=== PATIENT | female | born 1980 | race African-American/Black ===

== ENCOUNTER 2025-01-03 13:58 | Emergency (ER) | payer OTHER, SELFPAY ==
--- NOTE | ~2025-01-03 | XR_ITS ---
EXAMINATION: XR chest 1V portable, 01/03/2025 16:20 CDT HISTORY: uri, cough COMPARISON: No comparisons available. Technique: Single view. Findings: The lungs are clear, no effusion. No pneumothorax. Heart is normal size. Mediastinal and hilar contours are within normal limits. Bony thorax no acute abnormality. Impression: No acute cardiopulmonary abnormality. Reviewed, dictated and finalized at location A. Impression: No acute cardiopulmonary abnormality.
[2025-01-03 14:10] VITALS: BP 159/95; PULSE 83; RESP 21; O2SAT 94
--- NOTE | 2025-01-03 15:14 | ECG_ITS ---
Test Date: 2025-01-03 15:49:22 Measurements Intervals [place] Rate: 78 P: 59 PA: 145 QRS: 8 QRSD: 88 T: -5 QT: 365 QTc: 417 Interpretive Statements SINUS RHYTHM NORMAL ELECTROCARDIOGRAM No previous ECG available for comparison Electronically Signed On 01-05-2025 15:20:28 CDT by Lorenzo Valencia M.D.
[2025-01-03] MEDS: IPRATROPIUM BR 0.02% INH SOLN 0.5 MG/2.5 ML VIAL 1.5 MG INHALATION (15:37)
[2025-01-03 15:40] VITALS: PULSE 84; RESP 20
[2025-01-03 16:05] LABS: Hematocrit 39.4 % (37.0-47.0); Hemoglobin 12.2 g/dL (12.0-15.0); Immature Granulocyte Percent A 0.1 % (0-0.5); Lymphocytes Absolute Auto 2.06 K/mm3 (0.9-3.2); Mean Corpuscular HGB Conc 31.0 g/dl (32-36); Mean Corpuscular Hemoglobin 27.2 pg (26-34); Mean Corpuscular Volume 87.8 fl (80-100); Nucleated Red Blood Cells Absolute Auto 0.000 K/mm3 (0.0-0.012); Nucleated Red Blood Cells Perc 0.0 % (0.0-0.2); Platelet Count Result 240 k/mm3 (150-375); Red Blood Count 4.49 M/mm3 (4.2-5.4); White Blood Count 7.5 K/mm3 (4.5-10.0)
[2025-01-03 16:16] LABS: INR 1.1; Partial Thromboplastin Time 27.8 Seconds (22.3-36.8); Prothrombin Time 13.9 Seconds (11.1-14.7)
[2025-01-03 16:20] LABS: Alanine Aminotransferase 19 U/L (6-35); Albumin Level 3.9 g/dL (3.5-5.1); Alkaline Phosphatase 83 U/L (38-126); Anion Gap 6 mmol/L (4-12); Aspartate Amino Transferase 24 U/L (14-36); Bilirubin,Total 0.4 mg/dL (0.2-1.3); Blood Urea Nitrogen 11 mg/dL (7-17); Calcium 9.0 mg/dL (8.4-10.2); Carbon Dioxide 24 mmol/L (22-30); Chloride 104 mmol/L (98-107); Estimated Glomerular Filt Rate > 60; Glucose 90 mg/dL (65-110); Potassium 3.8 mmol/L (3.4-5.0); Sodium 134 mmol/L (137-145); Total Protein 7.0 g/dL (6.3-8.2)
[2025-01-03 16:28] LABS: Troponin I < 0.012 ng/mL (0.000-0.034)
--- NOTE | 2025-01-03 16:28 | ED_ITS ---
HPI - URI/Sore Throat General Chief Complaint: Upper Respiratory Infection Stated Complaint: Upper resp sx's, coughing, cold sx's, wheezing Time Seen by Provider: 01/03/25 14:51 Source: patient Mode of arrival: ambulatory Limitations: no limitations History of Present Illness HPI Narrative: Patient is a 44-year-old female, with PMH of asthma, who presents the ED with report of URI symptoms, cough, shortness of breath. Patient reports she developed URI symptoms yesterday, including cough, congestion, rhinorrhea. Reports symptoms have persisted into today and have began to flare of her asthma. Reports wheezing, shortness breath, chest tightness. Denies known fevers. Denies sick contacts. Related Data Allergies Allergy/AdvReac Type Severity Reaction Status Date / Time No Known Allergies Allergy Verified 01/03/25 16:04 Review of Systems 2 Review of Systems: All systems reviewed & are unremarkable except as noted in HPI. All systems reviewed & are unremarkable except as noted in HPI and below Exam 2 Narrative: GENERAL: Well appearing, well-nourished, non-toxic, in no acute distress. HEAD: Normocephalic, atraumatic. RESPIRATORY: Airway patent, respirations mildly tachypneic. Diffuse expiratory wheezing in all lung rojas. No significant focal rhonchi. Frequent coughing on exam. CARDIOVASCULAR: Regular rate and rhythm without murmurs, rubs, or gallops. ABDOMINAL: Soft, nontender, nondistended. Normoactive BS. MUSCULOSKELETAL: Moves all extremities. No gross deformities. SKIN: Warm, dry, normal color. NEURO: A&O X3. Speech clear. Cranial nerves II-XII grossly intact. Steady gait. No ataxic movements. PSYCHIATRIC: Appropriate mood and affect. Normal interaction. Course Vital Signs Vital signs: Vital Signs Pulse Rate 83 01/03/25 14:10 Respiratory Rate 21 H 01/03/25 14:10 Blood Pressure 159/95 H 01/03/25 14:10 Pulse Oximetry 94 01/03/25 14:10 Pulse Rate 87 01/03/25 19:26 Respiratory Rate 12 01/03/25 19:26 Blood Pressure 159/89 H 01/03/25 19:26 Pulse Oximetry 95 01/03/25 19:26 Oxygen Delivery Room Air 01/03/25 16:39 MDM - URI/Sore Throat MDM Narrative Medical decision making narrative: Patient presented to ED with cough, shortness breath, URI symptoms, history of asthma. Patient mildly [place] apneic with diffuse extreme wheezing on exam. She is afebrile here. Otherwise in no jimmie distress. Laboratory studies without leukocytosis or anemia. CMP is unremarkable. EKG without concerning changes. Troponin undetectable. D-dimer within normal range. Chest x-ray is clear. No evidence of pneumonia. Viral swabs are negative. 3 hour troponin undetectable Patient given Solu-Medrol and hour long nebulizer treatment in the ED. On re- evaluation, she is feeling improved, but still having some SOB, worse with exertion. Suspicious for upper respiratory infection causing asthma flare. Patient was ambulated throughout the ED and no hypoxia noted. She does feel comfortable going home to continue inhaler/nebulizers. Will discharge on steroid course. Advised close follow-up with PCP, very strict return precautions. Patient in agreement with plan. Discharged in stable condition. Medical Records Attestation: I reviewed the patient's medical records. Lab Data Attestation: I reviewed the patient's lab results. 01/03/25 15:40 01/03/25 15:40 Labs: Lab Results 01/03/25 01/03/25 Range/Units 15:40 18:44 WBC 7.5 (4.5-10.0) K/mm3 RBC 4.49 (4.2-5.4) M/mm3 Hgb 12.2 (12.0-15.0) g/dL Hct 39.4 (37.0-47.0) % MCV 87.8 (80-100) fl MCH 27.2 (26-34) pg MCHC 31.0 L (32-36) g/dl RDW 12.2 (11.5-14.5) % Plt Count 240 (150-375) k/mm3 MPV 9.6 (7.4-10.4) fl Immature Gran % (Auto) 0.1 (0-0.5) % Neut % (Auto) 58.3 (45.5-73.1) % Lymph % (Auto) 27.3 (18.3-44.2) % [place] % (Auto) 5.0 (2.6-8.5) % Eos % (Auto) 8.2 H (0-4.4) % Baso % (Auto) 1.1 (0.2-1.2) % Lymph # (Auto) 2.06 (0.9-3.2) K/mm3 [place] # (Auto) 0.4 (0.1-0.6) K/mm3 Eos # (Auto) 0.6 H (0-0.3) K/mm3 Baso # (Auto) 0.1 (0.0-0.1) K/mm3 Abs Immat Gran (auto) 0.01 (0.00-0.031) K/mm3 Absolute Neuts (auto) 4.4 (1.3-6.7) K/mm3 Absolute Nucleated RBC 0.000 (0.0-0.012) K/mm3 Nucleated RBC % 0.0 (0.0-0.2) % PT 13.9 (11.1-14.7) Seconds INR 1.1 APTT 27.8 (22.3-36.8) Seconds D-Dimer 0.35 (<0.48) ug/mL Sodium 134 L (137-145) mmol/L Potassium 3.8 (3.4-5.0) mmol/L Chloride 104 (98-107) mmol/L Carbon Dioxide 24 (22-30) mmol/L Anion Gap 6 (4-12) mmol/L BUN 11 (7-17) mg/dL Creatinine 0.81 (0.7-1.0) mg/dL Estim Creat Clear Calc Not Reportable Estimated GFR > 60 (59 - ) Glucose 90 (65-110) mg/dL Calcium 9.0 (8.4-10.2) mg/dL Total Bilirubin 0.4 (0.2-1.3) mg/dL AST 24 (14-36) U/L ALT 19 (6-35) U/L Alkaline Phosphatase 83 (38-126) U/L Troponin I < 0.012 < 0.012 (0.000-0.034) ng/mL Total Protein 7.0 (6.3-8.2) g/dL Albumin 3.9 (3.5-5.1) g/dL Influenza A (RT-PCR) Negative (Negative) Influenza B (RT-PCR) Negative (Negative) RSV (RT-PCR) Negative (Negative) SARS-CoV-2 RNA (RT-PCR) Negative (Negative) Imaging Data Attestation: I personally reviewed and interpreted this imaging study as follows: Radiologist's impression: ITS Impressions Chest X-Ray 01/03/25 16:31 Impression: No acute cardiopulmonary abnormality. ECG Data EKG #1: Attestation: I personally reviewed and interpreted this ECG as follows: ECG completion date: 01/03/25 ECG completion time: 15:49 EKG Interpretation: normal rate (78), sinus rhythm and non-specific ST changes Discharge Plan Discharge Clinical Impression: Upper respiratory infection, Asthma exacerbation Patient Disposition: Home Condition: Stable Instructions: Antibiotic Form, Asthma (ED), Upper Respiratory Infection (ED), Viral Syndrome (ED) Additional Instructions: Take steroids as prescribed. Continue your inhaler and nebulizers as needed and prescribed. Utilize Tessalon Perles as needed for cough. Tylenol and Ibuprofen for discomfort and/or fevers. Recommend kegm-vkl-pzwgtwd cough and cold medicines for symptom relief, Delsym, Mucinex, DayQuil, NyQuil, Sudafed, Robitussin, TheraFlu. Follow with primary care doctor for further evaluation. Return to the ED if you experience worsening or severe difficulty breathing, worsening chest pain, persistent fevers, unable to keep down food or drink, pain or swelling in your legs, or any other symptoms of concern. Patient Language: Hungarian Prescriptions: New benzonatate 200 mg capsule 200 mg PO TID PRN (Reason: cough) Qty: 15 0RF prednisone 50 mg tablet 50 mg PO DAILY Qty: 5 0RF Follow-up/Referrals: PHYSICIAN NOT ON STAFF,NONSTAFF [Non-Staff]
[2025-01-03 16:41] LABS: Influenza A QL RT-PCR Negative (Negative); Influenza B QL RT-PCR Negative (Negative); RSV RNA, RT-PCR Negative (Negative); SARS-CoV-2 RNA PCR Negative (Negative)
--- OUTSIDE RECORDS SUMMARY | 2025-01-03 16:45 | XMS_ITS | Clinical Summary ---
Author Organization [facility] Address [address] [place] [address] Phone Care Team Providers Care Lecturer In Computer Science Name Role Phone Unavailable Primary Care Provider Unavailabl e Allergies No known active allergies Medications montelukast (Singulair) 10 mg tablet Take 1 Tablet (10 mg) by mouth daily at bedtime. 30 Tablet 1 3 Active albuterol sulfate HFA 90 mcg/actuation aerosol inhaler Take 4 Puffs by inhalation every 4 hours as needed for Shortness of Breath. 8.5 Gram 3 Active albuterol (PROVENTIL,VENTOL IN) 2.5 mg /3 mL (0.083 %) Solution for Nebulization Take 3 mL (2.5 mg) by inhalation every 6 hours as needed for Shortness of Breath. 90 mL 11 11/02/2023 6:57 PM CDT 4 Active budesonide-formot [place] (Symbicort) 160-4.5 mcg/actuation HFA Aerosol Inhaler Take 2 Puffs by inhalation 2 times daily. 10.2 Gram 11 11/05/2023 4:18 PM CDT 4 Active glyBURIDE (DIABETA) 5 mg tablet TAKE 1 TABLET BY MOUTH TWICE DAILY DIRECTED Active fluticasone propionate (FLONASE) 50 mcg/spray [place], Suspension nasal inhaler SHAKE LIQUID AND USE 1 SPRAY IN EACH NOSTRIL EVERY DAY Active losartan-hydroCHL OROthiazide (HYZAAR) 100-12.5 mg tablet Take 1 Tablet by mouth daily in the morning. 2 Active Active Problems Problem Noted Date Diagnosed Date Moderate persistent asthma with exacerbation Type 2 diabetes mellitus wit h hypoglycemia without coma, without long-term current use of insulin 01/11/2022 Encounters Date Type Department Care Team Description 10/19/2024 External Device Data [facility]CTION Provider, Abstract 10/19/2024 External Device Data [facility] Provider, Abstract 10/19/2024 External Device Data [facility] Provider, Abstract 10/13/2024 External Device Data [facility] Provider, Abstract from Last 3 Months Immunizations Immunization Administration Dates Next Due Influenza Seasonal Unspecifi ed Formulation IM 02/25/2023,02/07/2022,01/24/2021 Social History Tobacco Use Types Packs/Day Years Used Date Smoking Tobacco: Never Smokeless Tobacco: Never Tobacco Cessation:Counseling Given: Not Answered Alcohol Use Standard Drinks/Week Comments Not Currently 0 (1 standard drink = 0.6 oz pur e alcohol) Feeling Safe Answer Date Recorded Are you in a relationship wi th someone who hurts you emotionally and/or physically? 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 Gender Identity Not on file Sexual Orientation Not on file Last Filed Vital Signs Vital Sign Reading Time Taken Comments Blood Pressure 132/101 11/02/2023 5:09 PM CDT Pulse 97 11/02/2023 5:32 PM CDT Temperature 36.8 C (98.3 F) 11/02/2023 5:09 PM CDT Respiratory Rate 18 11/02/2023 6:52 PM CDT Oxygen Saturation 93% 11/02/2023 5:32 PM CDT Inhaled Oxygen Concentration - - Weight 152 kg (335 lb) 11/02/2023 5:09 PM CDT Height 168.1 cm (5' 6.2) 11/02/2023 5:09 PM CDT Body Mass Index 53.74 11/02/2023 5:09 PM CDT Plan of Treatment Health Maintenance Due Date Last Done Comments DIABETES ANNUAL FOOT EXAM 1997 DIABETES ANNUAL RETINAL EXAM 1997 DIABETES MICROALBUMIN ANNUAL SCREEN 1997 LDL CHOLESTEROL ANNUAL 1997 HEPATITIS B VACCINES (1 of 3 - 19+ 3-dose series) 1998 02/10/2018 HPV/Cotest (21-29) 2000 HPV VACCINES (1 - 3-dose SCD M series) 2006 CERVICAL CANCER SCREENING 2009 HPV/Cotest (30-65) 2009 PAP SMEAR 2009 BREAST CANCER SCREENING 2019 COLORECTAL SCREENING 2024 Colorectal Cancer Screening 2024 FIT-DNA Q 3 years 2024 FIT/FOBT Q 1 year 2024 Flex Sig/CT Colonography Q 5 years 2024 DIABETES HBA1C Q 6 MONTHS 08/23/20242023, 01/10/2022, 10/26/2021, Additional history exists INFLUENZA VACCINE (#1) 2024 , 02/07/2022, 01/24/2021, Additional history exists DTAP/TDAP/TD VACCINES (2 - T d or Tdap) 02/11/2028 02/10/2018 Procedures Procedure Name Priority Date/Time Associated Diagnosis Comments HEMOGLOBIN A1C Stat 01/10/2022 8:54 PM CDT from Last 3 Months or Most Recently Relevant to Health Maintenance Results * HEMOGLOBIN A1C (01/10/2022 8:54 PM CDT) HEMOGLOBIN A1C 4.7 <5.7 % 01/10/2022 10:06 PM CDT [facility] [place] [facility] EST. AVG GLUCOSE, A1C 88 mg/dL 01/10/2022 10:06 PM CDT [facility] Blood Venipuncture / Unknown 01/10/2022 8:54 PM CDT 01/10/2022 9:49 PM CDT Narrative [facility] - 01/10/2022 10:06 PM CDT HGB A1C INTERPRETATION NORMAL: <5.7% PRE-DIABETES: 5.7 - 6.4% DIABETES: 6.5% OR GREATER us Kirit Martinez MD CHEMISTRY ORDERABLES Final Re sult [facility] [place] [facility] CLIA# [id number] [address] [place] [place] [id number] from Last 3 Months or Most Recently Relevant to Health Maintenance Insurance [employer] [place] [employer] [facility] [employer] Advance Directives For more information, please contact: [phone] * Default Full Code - Needs Discussion (Latest Code Status on File) Date Activated Date Inactivated Comments 01/11/2022 7:40 AM 01/11/2022 9:52 AM
--- OUTSIDE RECORDS SUMMARY | 2025-01-03 16:45 | XMS_ITS | Clinical Summary ---
Author Organization [facility] Address [address] [place] [id number] Care Team Providers Care English Language Arts Teacher Name Role Phone Abdias Dumont MD Primary Care Provider [phone] Social History Tobacco Use Types Packs/Day Years Used Date Smoking Tobacco: Never Assessed Comments Unknown Sex and Gender Information Value Date Recorded Sex Assigned at Not on file Legal Sex Female 8:14 PM CDT Gender Identity Not on file Sexual Orientation Not on file Plan of Treatment Health Maintenance Due Date Last Done Comments Cervical Cancer Screening Pa p Smear (Age 30 to 64) Every 3 Years 1979 Colorectal Cancer Screening Colonoscopy (10 Years) 1979 Annual Physical 1982 Hepatitis C 1997 DTaP, Tdap and Td Vaccines ( 1 - Tdap) 1998 Hepatitis B Vaccines (1 of 3 - 19+ 3-dose series) 1998 HPV Vaccines (1 - 3-dose SCD M series) 2006 Cervical Cancer Screening Pa p with HPV Testing (Age 30 to 64) Every 5 Years 2009 Cervical Cancer Screening with HPV 2009 Mammogram Screening 2019 COVID-19 Vaccine (2023-2 5 season) 2024 Meningococcal B Vaccine Aged Out No l onger eligible based on patient's age to complete this topic Meningococcal Vaccine Aged Out No kervin leoncio eligible based on patient's age to complete this topic Pneumococcal Vaccine: Pediat rics (0 to 5 Years) and At-Risk Patients (6 to 49 Years) Aged Out No longer eligible b ased on patient's age to complete this topic RSV Immunizations Under 20 Months Aged Out No longer eligible based on patient's age to complete this topic Care Teams English Language Arts Teacher Relationship Specialty Start Date End Date Abdias Dumont MD [address] [place] [phone] PCP - General 05/05/13
--- OUTSIDE RECORDS SUMMARY | 2025-01-03 16:45 | XMS_ITS | Clinical Summary ---
Author Organization [facility] Address [address] [place] [address] Care Team Providers Care Armorer Technician Name Role Phone Rosa Maria Mckee Gennaro PRIESTN-ASSEMBLING MACHINE OPERATOR Primary Care Provi maryana Source Comments [facility],non-owned Affiliates and Associated Physician Practices is amultiple site organization consisting of ambulatory clinics and hospital sitesin [place], [place], [place] and [place]. This disclosure is being madepursuant to the Care Everywhere program and may not contain all information available regarding this patient. Last updated 18.[facility] Allergies No known active allergies Medications * Be aware that medications may not be up to date on this document. Alwaysverify current medications with the patient. ipratropium (ATROVENT) 0.06 % nasal spray Tucker 2 sprays into each nostril 3 times daily 1 bottles 9 Active albuterol HFA (ProAir HFA) 108 (90 Base) MCG/ACT inhaler Inhale 2 (two) puffs by mouth every 4 hours as needed 8.5 g 3 Active Nirmatrelvir&Ri tonavir 300/100 20 x 150 MG & 10 x 100MG Oral Tablet Therapy Pack (Paxlovid) Take two 150mg tablets (300mg) of nirmatrelvir and one tablet (100mg) of ritonavir together as a single dose by mouth twice daily for 5 days. Do not crush, chew, or cut in half. 30 tablet 4 Active albuterol (Accuneb) 1.25 MG/3ML nebulizer solution Inhale 3 mL by mouth 4 times daily as needed for Shortness of Breath or Wheezing 75 mL Active Active Problems No known active problems Encounters Date Type Department Care Team Description 11/21/2024 9:38 AM CDT - 11/21/2024 1:21 PM CDT Emergency ER at [address] [address] SOB (shortness of breath); Moderate asthma with exacerbation, unspecified whether persistent (HCC); Hypertension, unspecified type Discharge Disposition: Home or Self Care 11/21/2024 Travel from Last 3 Months Social History Tobacco Use Types Packs/Day Years Used Date Smoking Tobacco: Every Day Cigarettes Smokeless Tobacco: Never Tobacco Cessation:Ready to Q uit: Not Asked; Counseling Given: Not Answered Alcohol Use Standard Drinks/Week Comments Never 0 (1 standard drink = 0.6 oz pur e alcohol) AUDIT-C Answer Date Recorded Q1: How often do you have a drink containing alcohol? Never 11/21/2024 Q2: How many drinks containi ng alcohol do you have on a typical day when you are drinking? Patient does not drink Q3: How often do you have si x or more drinks on one occasion? 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 Gender Identity Not on file Sexual Orientation Not on file Last Filed Vital Signs Vital Sign Reading Time Taken Comments Blood Pressure 176/98 11/21/2024 12:35 PM CDT Pulse 82 11/21/2024 12:35 PM CDT Temperature 36.8 C (98.2 F) 11/21/2024 9:26 AM CDT Respiratory Rate 18 11/21/2024 10:21 AM CDT Oxygen Saturation 95% 11/21/2024 12:35 PM CDT Inhaled Oxygen Concentration 21% 11/21/2024 1 0:21 AM CDT Weight 157.4 kg (347 lb) 11/21/2024 9:26 AM CDT Height 170.2 cm (5' 7) 11/21/2024 9:26 AM CDT Body Mass Index 54.35 11/21/2024 9:26 AM CDT Plan of Treatment Health Maintenance Due Date Last Done Comments JUHI (AGES 45-75) - COL ON CA SCREENING 1979 COLON MONITORING 1979 COLONOSCOPY - COLON CA SCREENING 1979 CT COLONOGRAPHY - COLON CA SCREENING 1979 Colorectal Cancer Screening 1979 FIT - COLON CA SCREENING 1979 FLEX SIG - COLON CA SCREENING 1979 MAMMOGRAM 1979 HIV SCREENING 1994 HEPATITIS C SCREENING 04/10/1997 DTAP/TDAP/TD VACCINES (1 - Tdap) 1998 HEPATITIS B VACCINE (1 of 3 - 19+ 3-dose series) 1998 PNEUMOCOCCAL VACCINE (1 of 2 - PCV) 1998 PAP SMEAR 2000 HPV VACCINE (1 - 3-dose SCDM series) 2006 DEPRESSION SCREENING 04/28/2024 COVID-19 VACCINE (3 - 2024-2 6 season) 2024 11/24/2020, 10/18/2020 INFLUENZA VACCINE (#1) 2024 , 01/24/2021, 02/10/2018 LIPID TESTING 04/10/2027 04/10/2022, 01/11/2022, 01/10/2022 ZOSTER VACCINE (1 of 2) 2029 HIB VACCINE Aged Out No longer eligi ble based on patient's age to complete this topic MENINGOCOCCAL (Group B) VACCINE SHARED DECISION-MAKING Aged Out No longer eligible based on patient's age to complete this topic MENINGOCOCCAL GROUPS A/C/Y/W VACCINE Aged Out No longer eligible b ased on patient's age to complete this topic Procedures Procedure Name Priority Date/Time Associated Diagnosis Comments CARDIAC EKG ORDER 11/22/2024 8:1 5 PM CDT TROPONIN-I HIGH SENSITIVE REFLEX 1HOUR Timed 11/21/2024 11:56 AM CDT B-TYPE NATRIURETIC PEPTIDE STAT 11/21/2024 11:19 AM CDT CBC W AUTO DIFFERENTIAL STAT 11/21/2024 11:19 AM CDT XR CHEST 2VW STAT 11/21/2024 10:19 AM CDT SOB (shortness of breath) HCG BETA BLOOD QUANTITATIVE STAT 11/21/2024 10:04 AM CDT TROPONIN-I HIGH SENSITIVE BASELINE + 1HR STAT 11/21/2024 10:04 AM CDT COMPREHENSIVE METABOLIC PANEL STAT 11/21/2024 10:04 AM CDT EKG 12-LEAD STAT 11/21/2024 9:42 AM CDT SOB (shortness of breath) from Last 3 Months Results * CARDIAC EKG ORDER (11/22/2024 8:15 PM CDT) Narrative 11/22/2024 8:15 PM CDT Ordered by an unspecified provider. us Scanned Document CARDIAC SERVICES ORDERABLES Fin al Result * TROPONIN-I HIGH SENSITIVE REFLEX 1HOUR (11/21/2024 11:56 AM CDT) Pathologist [facility] [place] Troponin I High Sensitive 5 <=14 ng/L 11/21/2024 12:25 PM CDT [facility] Delta Troponin I HS 11/21/2024 12:25 PM CDT [facility] Comment:Delta value intentio marissa not calculated. Baseline to 1 hour specimen collection interval exceeded. Blood BLOOD SPECIMEN / Unknown Venipuncture / Unknown 11/21/2024 11:56 AM CDT 11/21/2024 12:04 PM CDT us Hilda Lennon PA-C LAB - CHEMISTRY ORDERABLES Final Result [facility] [address] [place] [address] * CBC W AUTO DIFFERENTIAL (11/21/2024 11:19 AM CDT) WBC 7.9 4.0 - 10.7 x10E9/L 11/21/2024 11:21 AM CDT [facility] RBC Count 4.50 3.90 - 5.20 x10E12/L 11/21/2024 11:21 AM CDT [facility] Hemoglobin 12.5 11.9 - 15.8 g/dL 11/21/2024 11:21 AM CDT [facility] Hematocrit 38.5 34.8 - 46.1 % 11/21/2024 11:21 AM CDT [facility] MCV 85.6 80.0 - 98.0 fL 11/21/2024 11:21 AM CDT [facility] MCH 27.8 26.7 - 33.6 pg 11/21/2024 11:21 AM CDT [facility] MCHC 32.5 31.7 - 36.3 g/dL 11/21/2024 11:21 AM CDT [facility] RDW-CV 12.7 11.3 - 14.8 % 11/21/2024 11:21 AM CDT [facility] Platelet Count 243 150 - 420 x10E9/L 11/21/2024 11:21 AM CDT [facility] MPV 9.8 7.8 - 11.4 fL 11/21/2024 11:21 AM CDT [facility] Neutrophil % 51.5 41.0 - 74.0 % 11/21/2024 11:21 AM CDT [facility] Lymphocyte % 36.4 17.0 - 47.0 % 11/21/2024 11:21 AM CDT [facility] Monocyte % 4.7 3.0 - 11.0 % 11/21/2024 11:21 AM CDT [facility] Eosinophil % 6.2 0.0 - 7.0 % 11/21/2024 11:21 AM CDT [facility] Basophil % 0.9 0.0 - 1.6 % 11/21/2024 11:21 AM CDT [facility] Immature Granulocytes % 0.3 0.0 - 1.0 % 11/21/2024 11:21 AM CDT [facility] Neutrophil Absolute 4.06 1.60 - 7.50 x10E9/L 11/21/2024 11:21 AM CDT [facility] Lymphocyte Absolute 2.87 1.00 - 4.40 x10E9/L 11/21/2024 11:21 AM CDT [facility] Monocyte Absolute 0.37 0.15 - 1.00 x10E9/L 11/21/2024 11:21 AM CDT [facility] Eosinophil Absolute 0.49 0.00 - 0.60 x10E9/L 11/21/2024 11:21 AM CDT [facility] Basophil Absolute 0.07 0.00 - 0.13 x10E9/L 11/21/2024 11:21 AM CDT [facility] Blood BLOOD SPECIMEN / Unknown Venipuncture / Unknown 11/21/2024 11:19 AM CDT 11/21/2024 11:19 AM CDT Hilda Lennon PA-C LAB - HEMATOLOGY ORDERABLE S Final Result Performing Organization Address [facility] Co de Phone Number [facility] [address] [place] [id number] * B-TYPE NATRIURETIC PEPTIDE (11/21/2024 11:19 AM CDT) BNP 44 <=100 pg/mL 11/21/2024 11:41 AM CDT [facility] Blood BLOOD SPECIMEN / Unknown Venipuncture / Unknown 11/21/2024 11:19 AM CDT 11/21/2024 11:19 AM CDT Narrative [facility] - 11/21/2024 11:41 AM CDT A cutoff of 100 pg/mL has been demonstrated to provide the maximal combination of sensitivity, specificity, and negative predictive value for contributing to the diagnosis of congestive heart failure (CHF) only. A B-Type Natriuretic Peptide (BNP) value greater than or equal to 100 pg/mL is consistent with a diagnosis of CHF in the appropriate clinical setting. False positive results are more common in females greater than 75 years of age. Blood concentrations of natriuretic peptides may also be elevated in patients with myocardial infarction and in patients who are candidates for or are undergoing renal dialysis. us Hilda Lennon PA-C LAB - CHEMISTRY ORDERABLES Final Result Performing Organization Address [facility]/ZIP Co de Phone Number [facility] [address] [place] [id number] * XR CHEST 2VW (11/21/2024 10:19 AM CDT) Anatomical Region Laterality Modality Chest Radiographic Keysha ging 11/21/2024 10:2 9 AM CDT Impressions 11/21/2024 10:30 AM CDT IMPRESSION: Bibasilar atelectasis. > Interpreting Provider: Lorenzo Nix MD on 11/21/2024 10:30 AM Narrative 11/21/2024 10:30 AM CDT PROCEDURE: XR CHEST 2VW DATE/TIME OF EXAM: 11/21/2024 10:20 AM CLINICAL INFORMATION: None relevant/not provided if blank. Indication: R06.02: SOB (shortness of breath) Additional History: COMPARISON: 01/17/2024 FINDINGS: Linear bilateral mid to lower lung subsegmental atelectasis. No confluent consolidation, effusion, or pneumothorax. The cardiomediastinal silhouette is within normal limits for technique.No acute osseous abnormality is identified. Procedure Note Lorenzo Nix MD - 11/21/2024 PROCEDURE: XR CHEST 2VW DATE/TIME OF EXAM: 11/21/2024 10:20 AM CLINICAL INFORMATION: None relevant/not provided if blank. Indication: R06.02: SOB (shortness of breath) Additional History: COMPARISON: 01/17/2024 FINDINGS: Linear bilateral mid to lower lung subsegmental atelectasis. Noconfluent consolidation, effusion, or pneumothorax. The cardiomediastinalsilhouette is within normal limits for technique.No acute osseous abnormality is identified. IMPRESSION: Bibasilar atelectasis. > Interpreting Provider: Lorenzo Nix MD on 11/21/2024 10:30 AM Hilda Lennon PA-C DIAGNOSTIC IMAGING ORDERAB LES Final Result * TROPONIN-I HIGH SENSITIVE BASELINE + 1HR (11/21/2024 10:04 AM CDT) Troponin I High Sensitive 5 <=14 ng/L 11/21/2024 10:43 AM CDT [facility] Blood BLOOD SPECIMEN / Unknown Venipuncture / Unknown 11/21/2024 10:04 AM CDT 11/21/2024 10:21 AM CDT us Hilda Lennon PA-C LAB - CHEMISTRY ORDERABLES Final Result [facility] [address] [place] [address] * (ABNORMAL) COMPREHENSIVE METABOLIC PANEL (11/21/2024 10:04 AM CDT) [facility] Glucose 93 70 - 99 mg/dL 11/21/2024 10:39 AM CDT [facility] Sodium 137 136 - 145 mmol/L 11/21/2024 10:39 AM CDT [facility] Potassium 4.9 3.5 - 5.1 mmol/L 11/21/2024 10:39 AM CDT [facility] Chloride 110(H) 98 - 107 mmol/L 11/21/2024 10:39 AM CDT [facility] CO2 19(L) 22 - 29 mmol/L 11/21/2024 10:39 AM CDT [facility] Calcium 8.7 8.4 - 10.4 mg/dL 11/21/2024 10:39 AM CDT [facility] Anion Gap 8 6 - 16 mmol/L 11/21/2024 10:39 AM CDT [facility] BUN 11 5.3 - 18.7 mg/dL 11/21/2024 10:39 AM CDT [facility] Creatinine 0.89 0.57 - 1.11 mg/dL 11/21/2024 10:39 AM CDT [facility] Alkaline Phosphatase 64 40 - 150 U/L 11/21/2024 10:39 AM CDT [facility] ALT 20 6 - 57 U/L 11/21/2024 10:39 AM CDT [facility] AST 49(H) 10 - 48 U/L 11/21/2024 10:39 AM CDT [facility] Protein Total 7.3 6.4 - 8.3 gm/dL 11/21/2024 10:39 AM CDT [facility] Albumin 3.7 3.1 - 4.5 gm/dL 11/21/2024 10:39 AM CDT [facility] Bilirubin Total 0.5 0.2 - 1.2 mg/dL 11/21/2024 10:39 AM CDT [facility] eGFR by CKD-EPI 81(L) >=90 mL/min/1.7 3 m2 11/21/2024 10:39 AM CDT [facility] Comment:Estimated Glomerular Filtration Rate (eGFR) calculated using the CKD-EPI Creatinine Equation (2020), per the National Kidney Foundation and [place] [employer] Neph[employer] recommendations. Blood BLOOD SPECIMEN / Unknown Venipuncture / Unknown 11/21/2024 10:04 AM CDT 11/21/2024 10:21 AM CDT Narrative [facility] - 11/21/2024 10:39 AM CDT Specimen moderately hemolyzed, K, AST and total protein may be falsely elevated Hilda Lennon PA-C LAB - CHEMISTRY ORDERABLES Final Result [facility] [address] [place] [address] * HCG BETA BLOOD QUANTITATIVE (11/21/2024 10:04 AM CDT) [facility] hCG Quantitative <2.42 mIU/mL 11/22/19 10:45 AM CDT [facility] Blood BLOOD SPECIMEN / Unknown Venipuncture / Unknown 11/21/2024 10:04 AM CDT 11/21/2024 10:21 AM CDT Narrative [facility] - 11/21/2024 10:45 AM CDT hCG Reference Range, mIU/mL: Non Females 0-6.0 Perimenopausal Females ages 41-55* 0-7.7 Postmenopausal Females age >55* 0-14 Females, Weeks after Last Menstrual Period 0.2-1 week 5-50 1 - 2 weeks 50-500 2 - 3 weeks 100-5000 3 - 4 weeks 500-10,000 4 - 5 weeks 1000-50,000 5 - 6 weeks 10,000-100,000 6 - 8 weeks 15,000-200,000 2 - 3 months 10,000-100,000 Trophoblastic Disease >100,000 *In higher than expected hCG in females > age 40, a serum FSH >20 IU/L makes unlikely. us Hilda Lennon PA-C LAB - CHEMISTRY ORDERABLES Final Result [facility] [address] [place] [address] * EKG 12-LEAD (11/21/2024 9:42 AM CDT) Ventricular Rate 72 BPM [facility] Atrial Rate 72 BPM [facility] P-R Interval 148 ms [facility] QRS Duration ms 80 ms [facility] Q-T Interval ms 390 ms [facility] QTC Calculation (Bezet) 427 ms [facility] Calculated P Niles 58 degrees [facility] Calculated R Niles 22 degrees [facility] Calculated T Niles 17 degrees [facility] Interpretation EKG NORMAL SINUS RHYTHM NORMAL ECG Confirmed by MD Yolie, Kyaw ([id number]) on 11/21/2024 2:28:00 PM [facility] 11/21/2024 9:42 AM CDT 11/21/2024 2:28 PM CDT us Hilda Lennon PA-C ECG ORDERABLES Edited Res ult - Final Performing Organization Address City/[facility]/ZIP Co de Phone Number [facility] from Last 3 Months Insurance [employer] Care Teams Armorer Technician Relationship Specialty Start Date End Date Rosa Maria Mckee, DYE TANK TENDER-ASSEMBLING MACHINE OPERATOR [address] [place] [address] [address] [place] [address] PCP - General Nurse Practitioner Family 02/23/24
[2025-01-03 16:47] VITALS: PULSE 86; RESP 20
--- NOTE | 2025-01-03 18:31 | ECG_ITS ---
Test Date: 2025-01-03 18:38:32 Measurements Intervals [place] Rate: 93 P: 55 [place]: 149 QRS: -13 QRSD: 91 T: 16 QT: 351 QTc: 437 Interpretive Statements SINUS RHYTHM NORMAL ELECTROCARDIOGRAM Compared to ECG 01/03/2025 15:49:22 No significant changes Electronically Signed On 01-05-2025 15:24:00 CDT by Lorenzo Valencia M.D.
[2025-01-03 19:11] LABS: Troponin I < 0.012 ng/mL (0.000-0.034)
[2025-01-03 19:26] VITALS: BP 159/89; PULSE 87; RESP 12; O2SAT 95
== END 2025-01-03 19:26 | disposition home or self-care (01) ==
PROVIDERS: Student in an Organized Health Care Education/Training Program; Emergency Provider Physician Assistant
DX: J06.9 Acute upper respiratory infection, unspecified (principal); J45.901 Unspecified asthma with (acute) exacerbation; Z20.822 Contact with and (suspected) exposure to COVID-19
CPT/HCPCS: 36415; 71045; 80053; 84484; 85025; 85380; 85610; 85730; 87637; 93005; 94640; 96374; 99284; J2919

== ENCOUNTER 2025-02-13 12:41 | Emergency (ER) | payer OTHER, SELFPAY ==
--- NOTE | ~2025-02-13 | XR_ITS ---
Examination: XR chest 2V Clinical History: shortness of breath HX ASTHMA Comparison: 01/03/2025 Technique: PA and Lateral Findings: Cardiomediastinal silhouette normal size and configuration. Small airspace disease right middle lobe. Right basilar linear atelectasis. No acute bony abnormality. IMPRESSION: 1. Small airspace disease right middle lobe. Reviewed, dictated and finalized at location R.
[2025-02-13 12:57] VITALS: PULSE 76; RESP 18; TEMP 36.6; O2SAT 98
[2025-02-13 13:00] VITALS: O2SAT 100
--- NOTE | 2025-02-13 13:18 | ED_ITS ---
HPI - Asthma General Chief Complaint: Asthma Stated Complaint: asthma Time Seen by Provider: 02/13/25 13:11 Source: patient Mode of arrival: ambulatory Limitations: no limitations History of Present Illness HPI Narrative: This is a 44-year-old female with history of asthma who presents to the ED for shortness of breath. Patient states for the past 4-5 days, she has worsening shortness of breath consistent with her asthma. She has been using her albuterol inhaler and nebulizer treatments more frequently. She states that she used it 3 times this morning. She was concerned that this was getting worse admitted to get ahead of her asthma attacks. She has not been admitted recently for any reason. 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 Related Data Allergies Allergy/AdvReac Type Severity Reaction Status Date / Time No Known Allergies Allergy Verified 01/03/25 16:04 Review of Systems Review of Systems: Gen.: Denies fevers or chills Eyes: Denies eye pain or visual change ENT: Denies congestion Respiratory: Denies shortness of breath or cough CV: Denies chest pain or palpitations GI: Denies abdominal pain nausea, emesis or diarrhea denies burning, urgency, frequency or hematuria Musculoskeletal: Denies back pain or muscle pain Neuro: Denies numbness, tingling, weakness or focal weakness Skin: Denies rash Except as documented, all other systems reviewed and negative Exam Narrative: APPEARANCE: No acute distress, nontoxic, resting in bed EYES: EOMI HEENT: Normocephalic, atraumatic, OMM RESPIRATORY: No respiratory distress diminished breath sounds throughout with faint end-expiratory wheezes throughout CARDIOVASCULAR: Regular rate and rhythm without murmurs rubs or gallops. ABDOMINAL: Soft, nontender, nondistended, no rebound or guarding MUSCULOSKELETAl: Moves all extremities. No clubbing, cyanosis or edema. NEURO: Awake and alert. Following commands, speech normal, no focal deficits SKIN:: Warm, dry. No rashes lesions or abrasions PSYCHIATRIC: Normal affect/mood, Course Vital Signs Vital signs: Vital Signs Temperature 97.8 F 02/13/25 12:57 Pulse Rate 76 02/13/25 12:57 Respiratory Rate 18 02/13/25 12:57 Pulse Oximetry 98 02/13/25 12:57 Oxygen Delivery Room Air 02/13/25 12:57 Temperature 97.8 F 02/13/25 12:57 Pulse Rate 79 02/13/25 13:29 Respiratory Rate 18 02/13/25 13:29 Pulse Oximetry 97 02/13/25 13:29 Oxygen Delivery Room Air 02/13/25 13:00 MDM - Asthma MDM Narrative Medical decision making narrative: 44-year-old female presenting for shortness breath and flu-like symptoms. On initial evaluation patient was in no acute distress, afebrile, hemodynamically stable. She did have some diminished breath sounds throughout with end- expiratory wheezes. Patient was given a DuoNeb and steroids. Chest x-ray was obtained which did show a right middle lobe pneumonia. COVID/flu/RSV negative Prehn patient started short course of steroids and will be given Augmentin and doxycycline for pneumonia. Patient was also advised to continue taking albuterol treatments as needed. She was advised follow-up with her PCP in the next week for re-evaluation. Patient was agreeable to this plan. Given strict return precautions. Differential Diagnosis Differential diagnosis: Likely Acute exacerbation, Acute asthmatic bronchitis and Pneumonia Medical Records Attestation: I reviewed the patient's medical records. Lab Data Attestation: I reviewed the patient's lab results. Labs: Lab Results 02/13/25 Range/Units 13:32 Influenza A (RT-PCR) Negative (Negative) Influenza B (RT-PCR) Negative (Negative) RSV (RT-PCR) Negative (Negative) SARS-CoV-2 RNA (RT-PCR) Negative (Negative) Imaging Data Attestation: I personally reviewed and interpreted this imaging study as follows: My impression: Chest x-ray: Small infiltrate to the right lower lung, normal cardiac silhouette, no effusions Radiologist's impression: Impressions Chest X-Ray 02/13/25 13:53 IMPRESSION: 1. Small airspace disease right middle lobe. Discharge Plan Discharge Clinical Impression: Pneumonia Qualifiers: Pneumonia type: due to unspecified organism Laterality: right Lung location: middle lobe of lung Qualified Code(s): J18.9 - Pneumonia, unspecified organism Asthma with acute exacerbation Qualifiers: Asthma severity: mild Asthma persistence: intermittent Qualified Code(s): J45.21 - Mild intermittent asthma with (acute) exacerbation Patient Disposition: Home Condition: Stable Instructions: Antibiotic Form, Asthma (ED), Community Acquired Pneumonia (ED) Additional Instructions: X-ray did reveal pneumonia. Your given prescriptions for Augmentin and doxycycline and a prednisone, take these as prescribed. Follow-up with the PCP in the next week for re-evaluation. Return to the ED for any new or worsening symptoms. Patient Language: German Prescriptions: New prednisone 50 mg tablet 50 mg PO DAILY Qty: 4 0RF Rx Instructions: begin taking 02/14/25 doxycycline hyclate 100 mg capsule 100 mg PO DAILY Qty: 14 0RF amoxicillin-pot clavulanate 875-125 mg tablet 1 tablet PO Q12H Qty: 14 0RF No Action benzonatate 200 mg capsule 200 mg PO TID PRN (Reason: cough) Qty: 15 0RF prednisone 50 mg tablet 50 mg PO DAILY Qty: 5 0RF Follow-up/Referrals: Willy Loyola MD [Physician, Family Practice] UNKNOWN,DOCTOR [Primary Care Provider] Stand Alone Forms: Work/School Release IP
[2025-02-13 13:20] VITALS: PULSE 75; RESP 20
[2025-02-13] MEDS: IPRATROPIUM 0.5 MG/ALBUTEROL SULFATE 2.5 MG (BASE) AMPUL.NEB 3 ML INHALATION (13:22)
[2025-02-13 13:26] VITALS: PULSE 78; RESP 20
[2025-02-13 13:29] VITALS: PULSE 79; RESP 18; O2SAT 97
--- OUTSIDE RECORDS SUMMARY | 2025-02-13 13:47 | XMS_ITS | Clinical Summary ---
Author Organization [facility] Address [address] [place] [address] Phone Care Team Providers Care Mortgage Loan Originator Name Role Phone Unavailable Primary Care Provider [...] DIRECTED Active fluticasone propionate (FLONASE) 50 mcg/spray [place], Suspension nasal inhaler SHAKE LIQUID AND USE 1 SPRAY IN EACH NOSTRIL EVERY DAY Active losartan-hydroCHL OROthiazide (HYZAAR) 100-12.5 mg tablet Take 1 Tablet by mouth daily in the morning. 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 AVG GLUCOSE, A1C 88 mg/dL 01/10/2022 10:06 PM CDT [facility] Blood Venipuncture / Unknown 01/10/2022 8:54 PM CDT 01/10/2022 9:49 PM CDT Narrative [facility] - 01/10/2022 10:06 PM CDT HGB A1C INTERPRETATION NORMAL: <5.7% PRE-DIABETES: 5.7 - 6.4% DIABETES: 6.5% OR GREATER us Kirit Martinez MD CHEMISTRY ORDERABLES Final Re sult [facility] [employer] [facility] CLIA# [id number] [address] [place] [id number] from Last 3 Months or Most Recently Relevant to Health Maintenance Insurance [place] [employer] [facility] [employer] Advance Directives For more information, please contact: [phone] * Default Full Code - Needs Discussion (Latest Code Status on File) Date Activated Date Inactivated Comments 01/11/2022 7:40 AM 01/11/2022 9:52 AM
--- OUTSIDE RECORDS SUMMARY | 2025-02-13 13:47 | XMS_ITS | Clinical Summary ---
Author Organization [facility] Address [address] [place] [address] Care Team Providers Care Athletic Events Scorer Name Role Phone Abdias Dumont MD Primary Care Provider [phone] Social History Tobacco Use Types Packs/Day Years [...] 2019 COVID-19 Vaccine (2023-2 5 season) 2024 Influenza Adult (#1) 2025 Hepatitis A Vaccines Aged Out No long er eligible based on patient's age to complete this topic Meningococcal B Vaccine Aged Out No l [...] age to complete this topic Care Teams Athletic Events Scorer Relationship Specialty Start Date End Date Abdias Dumont MD [address] [place] [id number] PCP - General 05/05/13
--- OUTSIDE RECORDS SUMMARY | 2025-02-13 13:47 | XMS_ITS | Clinical Summary ---
Author Organization [facility] Address [address] [place] [address] Care Team Providers Care Child Care Center Administrator Name Role Phone Rosa Maria Mckee Gennaro PRIESTN-SUPERVISOR [employer] Primary Care Provi maryana Source Comments [facility],non-owned Affiliates and Associated Physician Practices is amultiple site organization consisting of ambulatory clinics and hospital sitesin [place], [place], [place] and [place]. This disclosure is being madepursuant to the Care Everywhere program and may not contain all information available regarding this patient. Last updated 18.[facility] Allergies No known active allergies Medications * Be aware that medications may not be up to date on this document. Alwaysverify current medications with the patient. 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 Baseline to 1 hour specimen collection interval exceeded. Blood BLOOD SPECIMEN / Unknown Venipuncture / Unknown 11/21/2024 11:56 AM CDT 11/21/2024 12:04 PM CDT us Hilda Lennon PA-C LAB - CHEMISTRY ORDERABLES Final Result [facility] [address] [place] [address] * CBC W AUTO DIFFERENTIAL (11/21/2024 11:19 AM CDT) WBC 7.9 4.0 - 10.7 x10E9/L 11/21/2024 11:21 AM CDT [facility] RBC Count 4.50 3.90 - 5.20 x10E12/L 11/21/2024 11:21 AM CDT [facility] Hemoglobin 12.5 11.9 - 15.8 g/dL 11/21/2024 11:21 AM CDT [facility] Hematocrit 38.5 34.8 - 46.1 % 11/21/2024 11:21 AM CDT [facility] MCV 85.6 80.0 - 98.0 fL 11/21/2024 11:21 AM CDT [facility] MCH 27.8 26.7 - 33.6 pg 11/21/2024 11:21 AM CDT [facility] MCHC 32.5 31.7 - 36.3 g/dL 11/21/2024 11:21 AM CDT [facility] RDW-CV 12.7 11.3 - 14.8 % 11/21/2024 11:21 AM CDT [facility] Platelet Count 243 150 - 420 x10E9/L 11/21/2024 11:21 AM CDT [facility] MPV 9.8 7.8 - 11.4 fL 11/21/2024 11:21 AM CDT [facility] Neutrophil % 51.5 41.0 - 74.0 % 11/21/2024 11:21 AM CDT [facility] Lymphocyte % 36.4 17.0 - 47.0 % 11/21/2024 11:21 AM CDT [facility] Monocyte % 4.7 3.0 - 11.0 % 11/21/2024 11:21 AM CDT [facility] Eosinophil % 6.2 0.0 - 7.0 % 11/21/2024 11:21 AM CDT [facility] Basophil % 0.9 0.0 - 1.6 % 11/21/2024 11:21 AM CDT [facility] Immature Granulocytes % 0.3 0.0 - 1.0 % 11/21/2024 11:21 AM CDT [facility] Neutrophil Absolute 4.06 1.60 - 7.50 x10E9/L 11/21/2024 11:21 AM CDT [facility] Lymphocyte Absolute 2.87 1.00 - 4.40 x10E9/L 11/21/2024 11:21 AM CDT [facility] Monocyte Absolute 0.37 0.15 - 1.00 x10E9/L 11/21/2024 11:21 AM CDT [facility] Eosinophil Absolute 0.49 0.00 - 0.60 x10E9/L 11/21/2024 11:21 AM CDT [facility] Basophil Absolute 0.07 0.00 - 0.13 x10E9/L 11/21/2024 11:21 AM CDT [facility] Blood BLOOD SPECIMEN / Unknown Venipuncture / Unknown 11/21/2024 11:19 AM CDT 11/21/2024 11:19 AM CDT Hilda Lennon PA-C LAB - HEMATOLOGY ORDERABLE S Final Result Performing Organization Address [facility] Co de Phone Number [facility] [address] [place] [id number] * B-TYPE NATRIURETIC PEPTIDE (11/21/2024 11:19 AM CDT) BNP 44 <=100 pg/mL 11/21/2024 11:41 AM CDT [facility] Blood BLOOD SPECIMEN / Unknown Venipuncture / Unknown 11/21/2024 11:19 AM CDT 11/21/2024 11:19 AM CDT Narrative [facility] - 11/21/2024 11:41 AM CDT A [...] CHEMISTRY ORDERABLES Final Result Performing Organization Address [facility]/ZIP Co de Phone Number [facility] [address] [place] [address] * XR CHEST 2VW (11/21/2024 10:19 [...] 5 <=14 ng/L 11/21/2024 10:43 AM CDT [facility] Blood BLOOD SPECIMEN / Unknown Venipuncture / Unknown 11/21/2024 10:04 AM CDT 11/21/2024 10:21 AM CDT us Hilda Lennon PA-C LAB - CHEMISTRY ORDERABLES Final Result [facility] [address] [place] [address] * (ABNORMAL) COMPREHENSIVE METABOLIC PANEL (11/21/2024 10:04 AM CDT) [facility] Glucose 93 70 - 99 mg/dL 11/21/2024 10:39 AM CDT [facility] Sodium 137 136 - 145 mmol/L 11/21/2024 10:39 AM CDT [facility] Potassium 4.9 3.5 - 5.1 mmol/L 11/21/2024 10:39 AM CDT [facility] Chloride 110(H) 98 - 107 mmol/L 11/21/2024 10:39 AM CDT [facility] CO2 19(L) 22 - 29 mmol/L 11/21/2024 10:39 AM CDT [facility] Calcium 8.7 8.4 - 10.4 mg/dL 11/21/2024 10:39 AM CDT [facility] Anion Gap 8 6 - 16 mmol/L 11/21/2024 10:39 AM CDT [facility] BUN 11 5.3 - 18.7 mg/dL 11/21/2024 10:39 AM CDT [facility] Creatinine 0.89 0.57 - 1.11 mg/dL 11/21/2024 10:39 AM CDT [facility] Alkaline Phosphatase 64 40 - 150 U/L 11/21/2024 10:39 AM CDT [facility] ALT 20 6 - 57 U/L 11/21/2024 10:39 AM CDT [facility] AST 49(H) 10 - 48 U/L 11/21/2024 10:39 AM CDT [facility] Protein Total 7.3 6.4 - 8.3 gm/dL 11/21/2024 10:39 AM CDT [facility] Albumin 3.7 3.1 - 4.5 gm/dL 11/21/2024 10:39 AM CDT [facility] Bilirubin Total 0.5 0.2 - 1.2 mg/dL 11/21/2024 10:39 AM CDT [facility] eGFR by CKD-EPI 81(L) >=90 mL/min/1.7 3 m2 11/21/2024 10:39 AM CDT [facility] Comment:Estimated Glomerular Filtration Rate (eGFR) calculated using the CKD-EPI Creatinine Equation (2020), per the National Kidney Foundation and [place] Society of Nephrology recommendations. Blood BLOOD SPECIMEN / Unknown Venipuncture / Unknown 11/21/2024 10:04 AM CDT 11/21/2024 10:21 AM CDT Narrative [facility] - 11/21/2024 10:39 AM CDT Specimen moderately hemolyzed, K, AST and total protein may be falsely elevated Hilda Lennon PA-C LAB - CHEMISTRY ORDERABLES Final Result [facility] [address] [place] [address] * HCG BETA BLOOD QUANTITATIVE (11/21/2024 10:04 AM CDT) [facility] hCG Quantitative <2.42 mIU/mL 11/22/19 10:45 AM CDT [facility] Blood BLOOD SPECIMEN / Unknown Venipuncture / Unknown 11/21/2024 10:04 AM CDT 11/21/2024 10:21 AM CDT Narrative [facility] - 11/21/2024 10:45 AM CDT hCG [...] CHEMISTRY ORDERABLES Final Result [facility] [address] [place] [address] * EKG 12-LEAD (11/21/2024 9:42 AM CDT) Ventricular Rate 72 BPM [facility] Atrial Rate 72 BPM [facility] P-R Interval 148 ms [facility] QRS Duration ms 80 ms [facility] Q-T Interval ms 390 ms [facility] QTC Calculation (Bezet) 427 ms [facility] Calculated P [place] 58 degrees [facility] Calculated R [place] 22 degrees [facility] Calculated T [place] 17 degrees [facility] Interpretation EKG NORMAL SINUS RHYTHM NORMAL ECG Confirmed by MD Yolie, Kyaw ([id number]) on 11/21/2024 2:28:00 PM [facility] 11/21/2024 9:42 AM CDT 11/21/2024 2:28 PM CDT us Hilda Lennon PA-C ECG ORDERABLES Edited Res ult - Final Performing Organization Address City/[facility]/ZIP Co de Phone Number [facility] from Last 3 Months Insurance A[employer] Care Teams Child Care Center Administrator Relationship Specialty Start Date End Date Rosa Maria Mckee, CARDIOLOGY TECH-SUPERVISOR [employer] [address] [place] [address] [address] [place] [address] PCP - General Nurse Practitioner Family 02/23/24
[2025-02-13 14:15] LABS: Influenza A QL RT-PCR Negative (Negative); Influenza B QL RT-PCR Negative (Negative); RSV RNA, RT-PCR Negative (Negative); SARS-CoV-2 RNA PCR Negative (Negative)
== END 2025-02-13 14:13 | disposition home or self-care (01) ==
PROVIDERS: Emergency Provider Student in an Organized Health Care Education/Training Program
DX: J18.9 Pneumonia, unspecified organism (principal); J45.21 Mild intermittent asthma with (acute) exacerbation
CPT/HCPCS: 71046; 87637; 94640; 99283; J7512

== ENCOUNTER 2025-02-23 07:39 | Emergency (ER) | payer SELFPAY ==
--- NOTE | ~2025-02-23 | XR_ITS ---
EXAMINATION: XR chest 2V, 02/23/2025 9:10 CDT HISTORY: SOB, HX OF ASTHMA COMPARISON: No comparisons available. Technique: 2 views obtained. Findings: The lungs are clear, no effusion. No pneumothorax. Heart is normal size. Mediastinal and hilar contours are within normal limits. Bony thorax no acute abnormality. Impression: No acute cardiopulmonary abnormality. Reviewed, dictated and finalized at location P. Impression: No acute cardiopulmonary abnormality.
[2025-02-23 07:38] VITALS: BP 163/91; PULSE 82; RESP 20; TEMP 36.4; O2SAT 98
[2025-02-23 07:42] VITALS: O2SAT 99
--- NOTE | 2025-02-23 07:44 | ECG_ITS ---
Test Date: 2025-02-23 07:44:09 Measurements Intervals [place] Rate: 81 P: 46 NM: 116 QRS: 22 QRSD: 90 T: 29 QT: 380 QTc: 441 Interpretive Statements SINUS RHYTHM WITH SHORT NM INTERVAL BASELINE WANDER- II, III, AVR, AVL, AVF, V4-V6 BORDERLINE ECG Compared to ECG 01/03/2025 18:38:32 Short NM interval now present Electronically Signed On 02-23-2025 08:00:12 CDT by Froy Sandoval D.O.
[2025-02-23] MEDS: ALBUTEROL SULFATE NEB 2.5 MG/3 ML INH 10 MG INHALATION (08:04)
[2025-02-23 08:05] VITALS: PULSE 80; RESP 17
[2025-02-23] MEDS: IPRATROPIUM BR 0.02% INH SOLN 0.5 MG/2.5 ML VIAL 1 MG INHALATION (08:05)
[2025-02-23 08:14] LABS: Hematocrit 39.1 % (37.0-47.0); Hemoglobin 12.2 g/dL (12.0-15.0); Immature Granulocyte Percent A 0.8 % (0-0.5); Lymphocytes Absolute Auto 3.39 K/mm3 (0.9-3.2); Mean Corpuscular HGB Conc 31.2 g/dl (32-36); Mean Corpuscular Hemoglobin 26.8 pg (26-34); Mean Corpuscular Volume 85.9 fl (80-100); Nucleated Red Blood Cells Absolute Auto 0.000 K/mm3 (0.0-0.012); Nucleated Red Blood Cells Perc 0.0 % (0.0-0.2); Platelet Count Result 236 k/mm3 (150-375); Red Blood Count 4.55 M/mm3 (4.2-5.4); White Blood Count 8.5 K/mm3 (4.5-10.0)
[2025-02-23 08:32] LABS: Alanine Aminotransferase 21 U/L (6-35); Albumin Level 3.7 g/dL (3.5-5.1); Alkaline Phosphatase 72 U/L (38-126); Anion Gap 3 mmol/L (4-12); Aspartate Amino Transferase 21 U/L (14-36); Bilirubin,Total 0.6 mg/dL (0.2-1.3); Blood Urea Nitrogen 13 mg/dL (7-17); Calcium 8.5 mg/dL (8.4-10.2); Carbon Dioxide 31 mmol/L (22-30); Chloride 102 mmol/L (98-107); Estimated CRCL calculation 107 ml/min; Estimated Glomerular Filt Rate > 60; Glucose 98 mg/dL (65-110); Sodium 136 mmol/L (137-145); Total Protein 6.5 g/dL (6.3-8.2)
[2025-02-23 08:45] LABS: Potassium 3.8 mmol/L (3.4-5.0)
[2025-02-23 09:01] VITALS: PULSE 68; RESP 12
--- OUTSIDE RECORDS SUMMARY | 2025-02-23 09:26 | XMS_ITS | Clinical Summary ---
Author Organization [facility] Address [address] [place] [address] Phone Care Team Providers Care Competitive Shopper Name Role Phone Unavailable Primary Care Provider [...] DIRECTED Active fluticasone propionate (FLONASE) 50 mcg/spray [place], Suspension nasal inhaler SHAKE LIQUID AND USE [...] on file Legal Sex Female 1:02 PM FAMILY SUPPORT COORDINATOR Gender Identity Not on file Sexual Orientation [...] 4.7 <5.7 % 01/10/2022 10:06 PM CDT [facility] EST. AVG GLUCOSE, A1C 88 mg/dL 01/10/2022 10:06 PM CDT [facility] Blood Venipuncture / Unknown 01/10/2022 8:54 PM CDT 01/10/2022 9:49 PM CDT Narrative [facility] - 01/10/2022 10:06 PM CDT HGB A1C INTERPRETATION NORMAL: <5.7% PRE-DIABETES: 5.7 - 6.4% DIABETES: 6.5% OR GREATER us Kirit Martinez MD CHEMISTRY ORDERABLES Final Re sult [facility] [employer] [facility] CLIA# [id number] [address] [place] [id number] from Last 3 Months or Most Recently Relevant to Health Maintenance Insurance [place] [employer] [place] [facility] [employer] Advance Directives For more information, please contact: [phone] * Default Full Code - Needs Discussion (Latest Code Status on File) Date Activated Date Inactivated Comments 01/11/2022 7:40 AM 01/11/2022 9:52 AM
--- OUTSIDE RECORDS SUMMARY | 2025-02-23 09:26 | XMS_ITS | Clinical Summary ---
Author Organization [facility] Address [address] [place] [address] Care Team Providers Care Stereotype Molder Name Role Phone Rosa Maria Mckee Gennaro PRIESTN-SILVICULTURE PROFESSOR Primary Care Provi maryana Source Comments [employer] [employer] [facility],non-owned Affiliates and Associated Physician Practices is amultiple site organization consisting of ambulatory clinics and hospital sitesin [place], [place], [place] and [place]. This disclosure is being madepursuant to the Care Everywhere program and may not contain all information available regarding this patient. Last updated 18.[facility] Allergies No known active allergies Medications * Be aware that medications may not be up to date on this document. Alwaysverify current medications with the patient. 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 Gender Identity Not on file Sexual Orientation [...] Health Maintenance Due Date Last Done Comments COLOGUARD (AGES 45-75) - COL ON CA SCREENING 1979 COLON MONITORING 1979 COLONOSCOPY - COLON CA SCREENING 1979 CT COLONOGRAPHY - COLON CA SCREENING 1979 Colorectal Cancer Screening 1979 FIT - COLON CA SCREENING 1979 FLEX SIG - COLON CA SCREENING 1979 LIPID TESTING 1979 MAMMOGRAM 1979 HIV SCREENING 1994 HEPATITIS C SCREENING 04/10/1997 DTAP/TDAP/TD VACCINES (1 - Tdap) 1998 HEPATITIS B VACCINE (1 of 3 - 19+ 3-dose series) 1998 PNEUMOCOCCAL VACCINE (1 of 2 - PCV) 1998 PAP SMEAR 2000 HPV VACCINE (1 - 3-dose SCDM series) 2006 DEPRESSION SCREENING 04/28/2024 COVID-19 VACCINE (3 - 2024-2 6 season) 2024 11/24/2020, 10/18/2020 INFLUENZA VACCINE (#1) 2024 2, 01/24/2021, 02/10/2018 ZOSTER VACCINE (1 of 2) 2029 HIB VACCINE Aged Out No longer eligi ble based on patient's age to complete this topic MENINGOCOCCAL (Group B) VACCINE SHARED DECISION-MAKING Aged Out No longer eligible based on patient's age to complete this topic MENINGOCOCCAL GROUPS A/C/Y/W VACCINE Aged Out No longer eligible b ased on patient's age to complete this topic Insurance AETNA Care Teams Stereotype Molder Relationship Specialty Start Date End Date Rosa Maria Mckee, ECHO TECH-SILVICULTURE PROFESSOR [address] [address] PCP - General Nurse Practitioner Family 02/23/24
--- NOTE | 2025-02-23 09:52 | ED.SOB ---
HPI - SOB/Dyspnea General Chief Complaint: Shortness of Breath/Dyspnea Stated Complaint: sob Time Seen by Provider: 02/23/25 07:45 Source: patient Mode of arrival: EMS Limitations: no limitations History of Present Illness HPI Narrative: 44-year-old with a history of asthma presents to the ER with ambulance with a complains of shortness of breath for past 1 week. Patient states that she has been using a years more frequently. She has occasional cough which is nonproductive. No history of fever or chills. MD elicited complaint: asthma attack Pertinent past history: asthma Onset (ago): week(s) (1) Timing: intermittent Exacerbating factors: nothing Relieving factors: bronchodilators Known history of: asthma Associated symptoms: denies other symptoms Related Data Allergies Allergy/AdvReac Type Severity Reaction Status Date / Time No Known Allergies Allergy Verified 02/23/25 08:37 Review of Systems Review of Systems: All systems reviewed & are unremarkable except as noted in HPI and below Constitutional: Constitutional: Reports no additional constitutional complaints Eyes: Eyes: Reports no additional eye complaints ENT: Reports system reviewed and no additional complaints, except as documented Cardiovascular: Cardiovascular: Reports no additional cardiovascular complaints Respiratory: Respiratory: Reports as per HPI Gastrointestinal: Gastrointestinal: Reports no additional gastrointestinal complaints Musculoskeletal: Musculoskeletal: Reports no additional musculoskeletal complaints Exam Narrative: GENERAL: Well-appearing, morbidly obese, and in no acute distress. HEAD: Normocephalic, atraumatic. EYES: PERRLA and EOMI. ENT: Nares clear, no rhinorrhea or epistaxis. Mucous membranes moist. NECK: Supple. CHEST: Bilateral wheeze. No respiratory distress. HEART: Regular rate and rhythm. No murmur heard. Normal peripheral pulses. ABDOMEN: Soft, nontender, nondistended, normal active bowel sounds. EXTREMITIES: Normal range of motion. No edema. SKIN: Warm, dry, no rash. NEURO: No focal deficits. Alert and oriented x3. PSYCH: Normal mood and affect. Course Course Emergency Course: Patient was given 1 hour long neb treatment, his labs and chest x-ray were obtained which were unremarkable. I re-examined the lungs are lungs sound clear. Advised to take steroids as prescribed continue inhalers. Vital Signs Vital signs: Vital Signs Temperature 36.4 C 02/23/25 07:38 Pulse Rate 82 02/23/25 07:38 Respiratory Rate 20 02/23/25 07:38 Blood Pressure 163/91 H 02/23/25 07:38 Pulse Oximetry 98 02/23/25 07:38 Oxygen Delivery Room Air 02/23/25 07:38 Temperature 36.4 C 02/23/25 07:38 Pulse Rate 68 02/23/25 09:01 Respiratory Rate 12 02/23/25 09:01 Blood Pressure 163/91 H 02/23/25 07:38 Pulse Oximetry 99 02/23/25 07:42 Oxygen Delivery Room Air 02/23/25 07:42 MDM - SOB/Dyspnea Differential Diagnosis Differential diagnosis: Likely asthma with exacerbation Medical Records Attestation: I reviewed the patient's medical records. Lab Data Attestation: I reviewed the patient's lab results. 02/23/25 08:00 02/23/25 08:00 Labs: Lab Results 02/23/25 Range/Units 08:00 WBC 8.5 (4.5-10.0) K/mm3 RBC 4.55 (4.2-5.4) M/mm3 Hgb 12.2 (12.0-15.0) g/dL Hct 39.1 (37.0-47.0) % MCV 85.9 (80-100) fl MCH 26.8 (26-34) pg MCHC 31.2 L (32-36) g/dl RDW 12.8 (11.5-14.5) % Plt Count 236 (150-375) k/mm3 MPV 9.9 (7.4-10.4) fl Immature Gran % (Auto) 0.8 H (0-0.5) % Neut % (Auto) 47.4 (45.5-73.1) % Lymph % (Auto) 39.7 (18.3-44.2) % [place] % (Auto) 4.8 (2.6-8.5) % Eos % (Auto) 6.4 H (0-4.4) % Baso % (Auto) 0.9 (0.2-1.2) % Lymph # (Auto) 3.39 H (0.9-3.2) K/mm3 [place] # (Auto) 0.4 (0.1-0.6) K/mm3 Eos # (Auto) 0.6 H (0-0.3) K/mm3 Baso # (Auto) 0.1 (0.0-0.1) K/mm3 Abs Immat Gran (auto) 0.07 H (0.00-0.031) K/mm3 Absolute Neuts (auto) 4.0 (1.3-6.7) K/mm3 Absolute Nucleated RBC 0.000 (0.0-0.012) K/mm3 Nucleated RBC % 0.0 (0.0-0.2) % Sodium 136 L (137-145) mmol/L Potassium 3.8 (3.4-5.0) mmol/L Chloride 102 (98-107) mmol/L Carbon Dioxide 31 H (22-30) mmol/L Anion Gap 3 L (4-12) mmol/L BUN 13 (7-17) mg/dL Creatinine 0.91 (0.7-1.0) mg/dL Estim Creat Clear Calc 107 ml/min Estimated GFR > 60 (59 - ) Glucose 98 (65-110) mg/dL Calcium 8.5 (8.4-10.2) mg/dL Total Bilirubin 0.6 (0.2-1.3) mg/dL AST 21 (14-36) U/L ALT 21 (6-35) U/L Alkaline Phosphatase 72 (38-126) U/L Total Protein 6.5 (6.3-8.2) g/dL Albumin 3.7 (3.5-5.1) g/dL Imaging Data Radiologist's impression: ITS Impressions Chest X-Ray 02/23/25 09:24 Impression: No acute cardiopulmonary abnormality. ECG Data EKG #1: ECG completion date: 02/23/25 ECG completion time: 07:44 EKG Interpretation: normal rate (81), sinus rhythm, no ectopy, normal QRS and normal QT Discharge Plan Discharge Clinical Impression: Asthma attack Qualifiers: Asthma severity: moderate Asthma persistence: persistent Qualified Code(s): J45.41 - Moderate persistent asthma with (acute) exacerbation Patient Disposition: Home Condition: Stable Instructions: Asthma (ED) Additional Instructions: continue nebulizer or inhalers , take steroids as prescribed Patient Language: Faroese Prescriptions: New prednisone 20 mg tablet 20 mg PO BID Qty: 14 0RF No Action benzonatate 200 mg capsule 200 mg PO TID PRN (Reason: cough) Qty: 15 0RF prednisone 50 mg tablet 50 mg PO DAILY Qty: 5 0RF prednisone 50 mg tablet 50 mg PO DAILY Qty: 4 0RF Rx Instructions: begin taking 02/14/25 doxycycline hyclate 100 mg capsule 100 mg PO DAILY Qty: 14 0RF amoxicillin-pot clavulanate 875-125 mg tablet 1 tablet PO Q12H Qty: 14 0RF Follow-up/Referrals: Willy Loyola MD [Physician, Family Practice] UNKNOWN,DOCTOR [Primary Care Provider] Time of Disposition: 09:53
== END 2025-02-23 10:11 | disposition home or self-care (01) ==
PROVIDERS: Emergency Provider Family Medicine
DX: J45.41 Moderate persistent asthma with (acute) exacerbation (principal)
CPT/HCPCS: 36415; 71046; 80053; 85025; 93005; 94640; 96374; 99284; J2919

== ENCOUNTER 2025-04-02 09:37 | Emergency (ER) | payer OTHER, SELFPAY ==
--- NOTE | ~2025-04-02 | XR_ITS ---
Examination: XR chest 1V portable Clinical History: SOB, CP Comparison: 02/23/2025 Technique: Portable AP Findings: Heart size normal. Lungs clear. No acute bony abnormality. IMPRESSION: 1. No acute cardiopulmonary findings given portable technique. Reviewed, dictated and finalized at location R. [facility]OPPER
--- OUTSIDE RECORDS SUMMARY | 2025-04-02 09:39 | XMS_ITS | Clinical Summary ---
Author Organization [facility] Address [address] [place] [address] Care Team Providers Care Collections Attorney Name Role Phone Abdias Dumont MD Primary Care Provider [phone] Social History Tobacco Use Types Packs/Day Years [...] HPV 2009 Mammogram Screening 2019 COVID-19 Vaccine (2024-2 6 season) 2024 Influenza Adult (#1) 2025 Hepatitis [...] age to complete this topic Care Teams Collections Attorney Relationship Specialty Start Date End Date Abdias Dumont MD [address] [place] [id number] PCP - General 05/05/13
--- OUTSIDE RECORDS SUMMARY | 2025-04-02 09:39 | XMS_ITS | Data Portability ---
Author Organization [facility] Janay Huertas Address [address] [facility] [place] [address] Care Team Providers Care Manager Advertising Name Role Phone PAYAM BAUTISTA Primary Care Provider [phone] OPAL MCKEE Primary Care Provider Assessment Encounter Date Assessment Date Assessment LastModified by Organization Details LastModified Time 08/11/2024 08/11/2024 New patient exam performed. Diabetic foot exam performed. Diabetic education provided. Discussed routine use of atraumatic callus shaved with such as pumice stone to the bilateral hallux callus Return to clinic 1 year or sooner with acute issues Not available 08/11/2024 15:17:30 Plan of Treatment Reminders Order Date Submit Date Provider Last Modified By Organization Details Last Modified Time Details Appointments None recorded. Lab CMP, serum or plasma 2024 025 [facility], [address] [place] [address], [address], [place], [address], 19:15:14 HbA1c (hemoglobin A1c), blood 2024 025 njeffries 9 In-Office Order, Internal Use Only DO Not Attach Compendium DO Not Attach Compendium, Do Not Delete/merge, [id number] 10:30:05 glucose, fingerstick , blood 2024 025 njeffries 9 In-Office Order, Internal Use Only DO Not Attach Compendium DO Not Attach Compendium, Do Not Delete/merge, 10:30:05 potassium, serum or plasma 2024 [facility], [address], [address], [place], [address], 09:06:56 HbA1c (hemoglobin A1c), blood 2024 025 njeffries 9 In-Office Order, Internal Use Only DO Not Attach Compendium DO Not Attach Compendium, Do Not Delete/merge, 17:46:47 glucose, fingerstick , blood 2024 025 njeffries 9 In-Office Order, Internal Use Only DO Not Attach Compendium DO Not Attach Compendium, Do Not Delete/merge, 17:46:47 HbA1c (hemoglobin A1c), blood 2024 025 njeffries 9 In-Office Order, Internal Use Only DO Not Attach Compendium DO Not Attach Compendium, Do Not Delete/merge, 17:46:47 HbA1c (hemoglobin A1c), blood 2024 025 njeffries 9 In-Office Order, Internal Use Only DO Not Attach Compendium DO Not Attach Compendium, Do Not Delete/merge, 13:52:18 glucose, fingerstick , blood 2024 025 njeffries 9 In-Office Order, Internal Use Only DO Not Attach Compendium DO Not Attach Compendium, Do Not Delete/merge, 13:52:18 Referral None recorded. Procedures None recorded. Surgeries None recorded. Imaging None recorded. Medication Orders Ozempic 1 mg/dose (4 mg/3 mL) subcutaneou s pen injector 2024 [id number], [address] [place] [address], [id number], 04/23/202 5 10:30:10 atenolol 50 mg-chlortha lidone 25 mg tablet 2024 025 [facility] #[id number], [address] [place] [address], [id number], 5 10:31:35 losartan 25 mg tablet 2024 025 [facility] #[id number], [address] [place] [address], [id number], 5 10:31:35 atenolol 50 mg-chlortha lidone 25 mg tablet 2024 [facility] #56110, [address] [place] [address], [id number], 5 11:04:04 losartan 100 mg tablet 2024 025 [facility] #78193, [address] [place] [address], [id number], 10:31:19 losartan 100 mg-hydrochl orothiazide 12.5 mg tablet 2024 025 [facility] #[id number], [address] [place] [address], [id number], 5 11:05:07 Ozempic 0.25 mg or 0.5 mg (2 mg/1.5 mL) subcutaneou s pen injector 2024 [facility][id number], [address] [place] [address], [id number], 00:44:17 Patient TargetsNo targets recorded. Patient Instructions Encounter Date Encounter Id Patient Instructions Last Modified By Organization Details Last Modified Time 07/20/2024 [id number] A healthy lifestyle: care instructions Not available 07/21/2024 17:46:47 08/11/2024 [id number] type 2 diabetes education Not available 08/11/2024 15:18:03 diabetes medicin e education Not available 08/11/2024 15:18:03 diabetes and nutrition education Not available 08/11/2024 15:18:03 diabetes - A1C education information Not available 08/11/2024 15:18:03 diabetes, blood sugar level education Not available 08/11/2024 15:18:03 08/11/2024 [id number] presbyopia: care instructions msafi Not available 08/11/2024 14:33:54 08/18/2024 [id number] Quitting Tobacco : Care Instructions Not available 08/18/2024 11:59:58 A healthy lifestyle: care instructions Not available 08/18/2024 11:59:58 Reason for Referral None Reported. Results Created Date Observation Date Name Description Value Unit Range Abnormal Flag Note LastModifiedBy Organization Detail LastModifiedTime 06/22/1906/22/2024 HbA1c (hemo globi n A1c), blood HbA1c 5.3 Not Available In-Office Order Internal Use Only DO Not Attach Compendium DO Not Attach Compendium, Do Not Delete/merge, [id number] 06/22/2024 14:35:53 06/22/1906/22/2024 gluco se, finge rstic k, blood Blood Glucose: mg/dl 112 Not Available In-Off ice Order Internal Use Only DO Not Attach Compendium DO Not Attach Compendium, Do Not Delete/merge, [id number] 06/22/2024 14:36:06 06/25/1906/25/2024 COMPL ETE BLOOD COUNT AUTO DIFF white blood count 8.9 x10e3 /uL 3.4-10 .8 normal Not Available [facility] (Lab) [address] [place], [address], 06/25/2024 15:21:21 06/25/19 25 06/25/2024 COMPL ETE BLOOD COUNT AUTO DIFF red blood count 4.40 x10e6 /uL 3.77-5 .28 normal Not Available [facility] (Lab) [address], [place], [address], 06/25/2024 15:21:21 06/25/19 25 06/25/2024 COMPL ETE BLOOD COUNT AUTO DIFF hemoglobin 11.9 g/dL 11.1-1 5.9 normal Not Available [facility] (Lab) [address], [place], [address], 06/25/2024 15:21:21 06/25/19 25 06/25/2024 COMPL ETE BLOOD COUNT AUTO DIFF hematocrit 38.3 % 34.0-4 6.6 normal Not Available [facility] (Lab) [address], [place], [address], 06/25/2024 15:21:21 06/25/19 25 06/25/2024 COMPL ETE BLOOD COUNT AUTO DIFF mean corpuscular volume 87 fL 79-97 normal Not Available [facility] (Lab) [address], [place], [address], 06/25/2024 15:21:21 06/25/19 25 06/25/2024 COMPL ETE BLOOD COUNT AUTO DIFF mean corpuscular hemoglobin 27.0 pg 26.6-3 3.0 normal Not Available [facility] (Lab) [address], [place], [address], 06/25/2024 15:21:21 06/25/19 25 06/25/2024 COMPL ETE BLOOD COUNT AUTO DIFF mean corpuscular HGB conc 31.1 g/dL 31.5-3 5.7 low Not Available [facility] (Lab) [address] [place], [address], 06/25/2024 15:21:21 06/25/19 25 06/25/2024 COMPL ETE BLOOD COUNT AUTO DIFF red cell distribution width 12.2 % 11.5-1 4.5 normal Not Available [facility] (Lab) [address], [place], [address], 06/25/2024 15:21:21 06/25/19 25 06/25/2024 COMPL ETE BLOOD COUNT AUTO DIFF platelet count 258 x10e3 /uL 150-45 0 normal Not Available [facility] (Lab) [address], [place], [address], 06/25/2024 15:21:21 06/25/19 25 06/25/2024 COMPL ETE BLOOD COUNT AUTO DIFF mean platelet volume 10.1 fL 8.9-12 .7 normal Not Available [facility] (Lab) [address] [facility], [place], [address], 06/25/2024 15:21:21 06/25/19 25 06/25/2024 COMPL ETE BLOOD COUNT AUTO DIFF immature granulocytes pct auto 0.5 % not estb. Not Available [facility] (Lab) [address] [place], [address], 06/25/2024 15:21:21 06/25/19 25 06/25/2024 COMPL ETE BLOOD COUNT AUTO DIFF neutrophils percent auto 57 % not estb. Not Available [facility] (Lab) [address] [facility], [place], [address], 06/25/2024 15:21:21 06/25/19 25 06/25/2024 COMPL ETE BLOOD COUNT AUTO DIFF lymphocytes percent auto 34 % not estb. Not Available [facility] (Lab) [address] [facility], [place], [address], 06/25/2024 15:21:21 06/25/19 25 06/25/2024 COMPL ETE BLOOD COUNT AUTO DIFF monocytes percent auto 5 % not estb. Not Available [facility] (Lab) [address] [facility], [place], [address], 06/25/2024 15:21:21 06/25/19 25 06/25/2024 COMPL ETE BLOOD COUNT AUTO DIFF eosinophils percent auto 4 % not estb. Not Available [facility] (Lab) [address] [place], [address], 06/25/2024 15:21:21 06/25/19 25 06/25/2024 COMPL ETE BLOOD COUNT AUTO DIFF basophils percent auto 1 % not estb. Not Available [facility] (Lab) [address], [place], [address], 06/25/2024 15:21:21 06/25/19 25 06/25/2024 COMPL ETE BLOOD COUNT AUTO DIFF neutrophils absolute auto 5.1 x10e3 /uL 1.4-7. 0 normal Not Available [facility] (Lab) [address], [place], [address], 06/25/2024 15:21:21 06/25/19 25 06/25/2024 COMPL ETE BLOOD COUNT AUTO DIFF immature granulocytes abs auto 0.0 x10e3 /uL 0.0-0. 1 normal Not Available [facility] (Lab) [address], [place], [address], 06/25/2024 15:21:21 06/25/19 25 06/25/2024 COMPL ETE BLOOD COUNT AUTO DIFF lymphocytes absolute auto 3.0 x10e3 /uL 0.7-3. 1 normal Not Available [facility] (Lab) [address], [place], [address], 06/25/2024 15:21:21 06/25/19 25 06/25/2024 COMPL ETE BLOOD COUNT AUTO DIFF monocytes absolute auto 0.4 x10e3 /uL 0.1-0. 9 normal Not Available [facility] (Lab) [address] [place], [address], 06/25/2024 15:21:21 06/25/19 25 06/25/2024 COMPL ETE BLOOD COUNT AUTO DIFF eosinophils absolute auto 0.3 x10e3 /uL 0.0-0. 4 normal Not Available [facility] (Lab) [address] [place], [address], 06/25/2024 15:21:21 06/25/19 25 06/25/2024 COMPL ETE BLOOD COUNT AUTO DIFF basophils absolute auto 0.1 x10e3 /uL 0.0-0. 2 normal Not Available [facility] (Lab) [address] [place], [address], 06/25/2024 15:21:21 06/25/19 25 06/25/2024 COMPL ETE BLOOD COUNT AUTO DIFF nucleated red blood cells auto 0 % 0-0 normal Not Available [facility] (Lab) [address] [facility], [place], [address], 06/25/2024 15:21:21 07/07/19 25 07/06/2024 gluco se, clarisae rstic k, blood Blood Glucose: mg/dl 109 Not Available In-Off ice Order Internal Use Only DO Not Attach Compendium DO Not Attach Compendium, Do Not Delete/merge, 07/06/2024 11:44:35 07/07/1907/06/2024 HbA1c (hemo globi n A1c), blood HbA1c 5.3 Not Available In-Office Order Internal Use Only DO Not Attach Compendium DO Not Attach Compendium, Do Not Delete/merge, 07/06/2024 11:44:25 07/21/19 25 07/20/2024 HbA1c (hemo globi n A1c), blood HbA1c 5.5 Not Available In-Office Order Internal Use Only DO Not Attach Compendium DO Not Attach Compendium, Do Not Delete/merge, 07/20/2024 10:31:44 07/21/1907/20/2024 gluco se finge rstic k, blood Blood Glucose: mg/dl 95 Not Available In-Off ice Order Internal Use Only DO Not Attach Compendium DO Not Attach Compendium, Do Not Delete/merge, 07/20/2024 10:26:51 07/21/19 25 07/20/2024 HbA1c (hemo globi n A1c), blood HbA1c 5.5 Not Available In-Office Order Internal Use Only DO Not Attach Compendium DO Not Attach Compendium, Do Not Delete/merge, 07/20/2024 10:26:38 08/19/19 25 08/18/2024 COMP. METAB OLIC PANEL (14) glucose 120 mg/dL 70-99 above high normal Not Available [facility] [address] [place], [address], 08/18/2024 19:15:14 08/19/19 25 08/18/2024 COMP. METAB OLIC PANEL (14) BUN 17 mg/dL 6-24 Not Available [facility] [address] [place], [address], 08/18/2024 19:15:14 08/19/19 25 08/18/2024 COMP. METAB OLIC PANEL (14) creatinine 1.04 mg/dL 0.76-1 .27 Not Available [facility] [address] [place], [address], 08/18/2024 19:15:14 08/19/19 25 08/18/2024 COMP. METAB OLIC PANEL (14) eGFR 68 >=60 Units for eGFR value s are mL/mi n/1.7 3 The eGFR Calcu latio n has not been valid ated for patie nts under the age of 18. If test resul ts are displ ayed for a patie nt under the age of 18, disre rocio that value . Not Available [facility] [address] [place] [address], [address], 08/18/2024 19:15:14 08/19/19 25 08/18/2024 COMP. METAB OLIC PANEL (14) BUN/creatini ne ratio 16 9-23 Not Available [facility] [address] [place], [address], 08/18/2024 19:15:14 08/19/19 25 08/18/2024 COMP. METAB OLIC PANEL (14) sodium 135 mmol/ L 134-14 4 Not Available [facility] [address] [place], [address], 08/18/2024 19:15:14 08/19/19 25 08/18/2024 COMP. METAB OLIC PANEL (14) potassium 4.4 mmol/ L 3.5-5. 2 Not Available [facility] [address] [place], [address], 08/18/2024 19:15:14 08/19/19 25 08/18/2024 COMP. METAB OLIC PANEL (14) chloride 99 mmol/ L 96-106 Not Available [facility] [address] [place] [address], [address], 08/18/2024 19:15:14 08/19/19 25 08/18/2024 COMP. METAB OLIC PANEL (14) carbon dioxide, total 25 mmol/ L 20-29 Not Available [facility] [address] [place] [address], [address], 08/18/2024 19:15:14 08/19/19 25 08/18/2024 COMP. METAB OLIC PANEL (14) calcium 9.5 mg/dL 8.7-10 .2 Not Available [facility] [address] [place], [address], 08/18/2024 19:15:14 08/19/19 25 08/18/2024 COMP. METAB OLIC PANEL (14) protein, total 6.8 g/dL 6.0-8. 5 Not Available [facility] [address] [place] [address], [address], 08/18/2024 19:15:14 08/19/19 25 08/18/2024 COMP. METAB OLIC PANEL (14) albumin 4.1 g/dL 3.9-4. 9 Not Available [facility] [address] [place] [address], [address], 08/18/2024 19:15:14 08/19/19 25 08/18/2024 COMP. METAB OLIC PANEL (14) globulin, total 2.7 g/dL 1.5-4. 5 Not Available [facility] [address] [place] [address], [address], 08/18/2024 19:15:14 08/19/19 25 08/18/2024 COMP. METAB OLIC PANEL (14) A/G ratio 1.5 1.2-2. 2 Not Available [facility] [address] [place], [address], 08/18/2024 19:15:14 08/19/19 25 08/18/2024 COMP. METAB OLIC PANEL (14) bilirubin, total 0.4 mg/dL 0.0-1. 2 Not Available [facility] [address] [place], [address], 08/18/2024 19:15:14 08/19/19 25 08/18/2024 COMP. METAB OLIC PANEL (14) alkaline phosphatase 76 IU/L 44-121 Not Available [facility] [address] [place], [address], 08/18/2024 19:15:14 08/19/19 25 08/18/2024 COMP. METAB OLIC PANEL (14) AST (SGOT) 15 U/L 0-40 Not Available [facility] [address] [place], [address], 08/18/2024 19:15:14 08/19/19 25 08/18/2024 COMP. METAB OLIC PANEL (14) ALT (SGPT) 14 IU/L 0-32 Not Available [facility] [address] [place], [address], 08/18/2024 19:15:14 08/19/19 25 08/19/2024 POTAS SIUM potassium 4.3 mmol/ L 3.5-5. 2 Not Available [facility] ([facility]) [address], [place], [address], 08/19/2024 09:06:56 08/19/19 25 08/18/2024 HbA1c (hemo globi n A1c), blood HbA1c 5.5 Not Available In-Office Order Internal Use Only DO Not Attach Compendium DO Not Attach Compendium, Do Not Delete/merge, [id number] 08/18/2024 10:13:52 08/19/19 25 08/18/2024 gluco se, clarisae rstic k, blood Blood Glucose: mg/dl 136 Not Available In-Off ice Order Internal Use Only DO Not Attach Compendium DO Not Attach Compendium, Do Not Delete/merge, [id number] 08/18/2024 10:13:53 11/22/19 25 11/21/2024 CBC W Auto Diffe renti al panel - Blood leukocytes [#/volume] in blood by automated count 7.9 text: 4.0 - 10.7 x10e9/ L Not Available Not Available 12/01/2024 09:39:36 11/22/19 25 11/21/2024 CBC W Auto Diffe renti al panel - Blood erythrocytes [#/volume] in blood by automated count 4.5 text: 3.90 - 5.20 x10e12 /L Not Available Not Available 12/01/2024 09:39:36 11/22/19 25 11/21/2024 CBC W Auto Diffe renti al panel - Blood hemoglobin [mass/volume ] in blood 12.5 g/dL low: 11.9g/ dLhigh : 15.8g/ dL Not Available Not Available 12/01/2024 09:39:36 11/22/19 25 11/21/2024 CBC W Auto Diffe renti al panel - Blood hematocrit [volume fraction] of blood by automated count 38.5 % low: 34.8%h igh: 46.1% Not Available Not Available 12/01/2024 09:39:36 11/22/19 25 11/21/2024 CBC W Auto Diffe renti al panel - Blood MCV [entitic mean volume] in red blood cells by automated count 85.6 fL low: 80fLhi gh: 98fL Not Available Not Available 12/01/2024 09:39:36 11/22/19 25 11/21/2024 CBC W Auto Diffe renti al panel - Blood MCH [entitic mass] by automated count 27.8 pg low: 26.7pg high: 33.6pg Not Available Not Available 12/01/2024 09:39:36 11/22/1911/21/2024 CBC W Auto Diffe renti al panel - Blood MCHC [entitic mass/volume] in red blood cells by automated count 32.5 g/dL low: 31.7g/ dLhigh : 36.3g/ dL Not Available Not Available 12/01/2024 09:39:36 11/22/1911/21/2024 CBC W Auto Diffe renti al panel - Blood erythrocyte [distwidth] in red blood cells by automated count 12.7 % low: 11.3%h igh: 14.8% Not Available Not Available 12/01/2024 09:39:36 11/22/1911/21/2024 CBC W Auto Diffe renti al panel - Blood platelets [#/volume] in blood by automated count 243 text: 150 - 420 x10e9/ L Not Available Not Available 12/01/2024 09:39:36 11/22/1911/21/2024 CBC W Auto Diffe renti al panel - Blood platelet [entitic mean volume] in blood by automated count 9.8 fL low: 7.8fLh igh: 11.4fL Not Available Not Available 12/01/2024 09:39:36 11/22/1911/21/2024 CBC W Auto Diffe renti al panel - Blood neutrophils/ leukocytes in blood by automated count 51.5 % low: 41%hig h: 74% Not Available Not Available 12/01/2024 09:39:36 11/22/1911/21/2024 CBC W Auto Diffe renti al panel - Blood lymphocytes/ leukocytes in blood by automated count 36.4 % low: 17%hig h: 47% Not Available Not Available 12/01/2024 09:39:36 11/22/1911/21/2024 CBC W Auto Diffe renti al panel - Blood monocytes/le ukocytes in blood by automated count 4.7 % low: 3%high : 11% Not Available Not Available 12/01/2024 09:39:36 11/22/1911/21/2024 CBC W Auto Diffe renti al panel - Blood eosinophils/ leukocytes in blood by automated count 6.2 % low: 0%high : 7% Not Available Not Available 12/01/2024 09:39:36 11/22/1911/21/2024 CBC W Auto Diffe renti al panel - Blood basophils/le ukocytes in blood by automated count 0.9 % low: 0%high : 1.6% Not Available Not Available 12/01/2024 09:39:36 11/22/1911/21/2024 CBC W Auto Diffe renti al panel - Blood immature granulocytes /leukocytes in blood by automated count 0.3 % low: 0%high : 1% Not Available Not Available 12/01/2024 09:39:36 11/22/1911/21/2024 CBC W Auto Diffe renti al panel - Blood neutrophils [#/volume] in blood by automated count 4.06 text: 1.60 - 7.50 x10e9/ L Not Available Not Available 12/01/2024 09:39:36 11/22/1911/21/2024 CBC W Auto Diffe renti al panel - Blood lymphocytes [#/volume] in blood by automated count 2.87 text: 1.00 - 4.40 x10e9/ L Not Available Not Available 12/01/2024 09:39:36 11/22/1911/21/2024 CBC W Auto Diffe renti al panel - Blood monocytes [#/volume] in blood by automated count 0.37 text: 0.15 - 1.00 x10e9/ L Not Available Not Available 12/01/2024 09:39:36 11/22/1911/21/2024 CBC W Auto Diffe renti al panel - Blood eosinophils [#/volume] in blood 0.49 text: 0.00 - 0.60 x10e9/ L Not Available Not Available 12/01/2024 09:39:36 11/22/1911/21/2024 CBC W Auto Diffe renti al panel - Blood basophils [#/volume] in blood by automated count 0.07 text: 0.00 - 0.13 x10e9/ L Not Available Not Available 12/01/2024 09:39:36 11/22/1911/21/2024 CBC W Auto Diffe renti al panel - Blood interpretati on and review of laboratory results Normal Not Available Not Available 09/2024 09:39:36 11/22/1911/21/2024 Natri ureti c pepti de B [Mass /volu me] in Serum or Plasm a natriuretic peptide B [mass/volume ] in serum or plasma 44 pg/mL high: 100pg/ mL Not Available Not Available 12/01/2024 09:39:36 11/22/19 25 11/21/2024 Natri ureti c pepti de B [Mass /volu me] in Serum or Plasm a Unknown Analyte A cutoff of 100 pg/mL has been demons trated to provid e the sabrina l combin ation of sensit ivity, specif icity, and negati ve predic tive value for contri buting to the diagno sis of conges tive heart failur e (CHF) only. A B-Type Natriu retic Peptid e (BNP) value greate r than or equal to 100 pg/mL is consis tent with a diagno sis of CHF in the appro riate clinic al settin g. False positi ve result s are more common in female s greate r than 75 years of age. Blood concen tratio ns of natriu retic peptid es may also be elevat ed in patien ts with myocar dial infarc tion and in patien ts who are candid ates for or are underg oing renal dialys is. Not Available Not Available 09:39:36 11/22/1911/21/2024 Natri ureti c pepti de B [Mass /volu me] in Serum or Plasm a interpretati on and review of laboratory results Normal Not Available Not Available 09/2024 09:39:36 11/22/19 25 11/21/2024 Compr ehens seth metab olic 1999 panel - Serum or Plasm a glucose [mass/volume ] in serum or plasma 93 mg/dL low: 70mg/d Lhigh: 99mg/d L Not Available Not Available 12/01/2024 09:39:35 11/22/19 25 11/21/2024 Compr ehens seth metab olic 1999 panel - Serum or Plasm a sodium [moles/volum e] in serum or plasma 137 mmol/ L low: 136mmo l/Lhig h: 145mmo l/L Not Available Not Available 12/01/2024 09:39:35 11/22/19 25 11/21/2024 Compr ehens seth metab olic 1999 panel - Serum or Plasm a potassium [moles/volum e] in serum or plasma 4.9 mmol/ L low: 3.5mmo l/Lhig h: 5.1mmo l/L Not Available Not Available 12/01/2024 09:39:35 11/22/19 25 11/21/2024 Compr ehens seth metab olic 1999 panel - Serum or Plasm a chloride [moles/volum e] in serum or plasma 110 mmol/ L low: 98mmol /Lhigh : 107mmo l/L high Not Available Not Available 12/01/2024 09:39:35 11/22/19 25 11/21/2024 Compr ehens seth metab olic 1999 panel - Serum or Plasm a carbon dioxide, total [moles/volum e] in serum or plasma 19 mmol/ L low: 22mmol /Lhigh : 29mmol /L low Not Available Not Available 12/01/2024 09:39:35 11/22/19 25 11/21/2024 Compr ehens seth metab olic 1999 panel - Serum or Plasm a calcium [mass/volume ] in serum or plasma 8.7 mg/dL low: 8.4mg/ dLhigh : 10.4mg /dL Not Available Not Available 12/01/2024 09:39:35 11/22/19 25 11/21/2024 Compr ehens seth metab olic 1999 panel - Serum or Plasm a anion gap in blood by calculation 8 mmol/ L low: 6mmol/ Lhigh: 16mmol /L Not Available Not Available 12/01/2024 09:39:35 11/22/19 25 11/21/2024 Compr ehens seth metab olic 1999 panel - Serum or Plasm a urea nitrogen [mass/volume ] in serum or plasma 11 mg/dL low: 5.3mg/ dLhigh : 18.7mg /dL Not Available Not Available 12/01/2024 09:39:35 11/22/19 25 11/21/2024 Compr ehens seth metab olic 2000 panel - Serum or Plasm a creatinine [mass/volume ] in serum or plasma 0.89 mg/dL low: 0.57mg /dLhig h: 1.11mg /dL Not Available Not Available 12/01/2024 09:39:35 11/22/19 25 11/21/2024 [facility] [employer] [facility] 1999 panel - Serum or Plasm a alkaline phosphatase [enzymatic activity/vol ume] in serum or plasma 64 U/L low: 40U/Lh igh: 150U/L Not Available Not Available 12/01/2024 09:39:35 11/22/19 25 11/21/2024 [facility] [employer] [facility] 1999 panel - Serum or Plasm a alanine aminotransfe rase [enzymatic activity/vol ume] in serum or plasma 20 U/L low: 6U/Lhi gh: 57U/L Not Available Not Available 12/01/2024 09:39:35 11/22/19 25 11/21/2024 [facility] 1999 panel - Serum or Plasm a aspartate aminotransfe rase [enzymatic activity/vol ume] in serum or plasma 49 U/L low: 10U/Lh igh: 48U/L high Not Available Not Available 12/01/2024 09:39:35 11/22/1911/21/2024 [facility] [employer] [facility] 1999 panel - Serum or Plasm a protein [mass/volume ] in serum or plasma 7.3 text: 6.4 - 8.3 gm/dL Not Available Not Available 12/01/2024 09:39:35 11/22/1911/21/2024 [facility] [employer] [employer] [facility] 1999 panel - Serum or Plasm a albumin [mass/volume ] in serum or plasma 3.7 text: 3.1 - 4.5 gm/dL Not Available Not Available 12/01/2024 09:39:35 11/22/1911/21/2024 [facility] [employer] [facility] 1999 panel - Serum or Plasm a bilirubin.to kelle [mass/volume ] in serum or plasma 0.5 mg/dL low: 0.2mg/ dLhigh : 1.2mg/ dL Not Available Not Available 12/01/2024 09:39:35 11/22/19 25 11/21/2024 Compr ehens seth metab olic 2000 panel - Serum or Plasm a glomerular filtration rate [volume rate/area] in serum, plasma or blood by creatinine-b ased formula (CKD-epi 2020)/1.73 sq M 81 text: >=90 mL/min /1.73 m2 low Estim ated Glome rular Filtr ation Rate (eGFR ) calcu lated using the CKD-E PI Creat inine Equat ion (2020 ), per the Natio nal Kid[employer] y [employer] ation and Ameri can Socie ty of Nephr ology recom menda tions . Not Available Not Available 12/01/2024 09:39:35 11/22/1911/21/2024 Compr ehens seth metab olic 2000 panel - Serum or Plasm a Unknown Analyte Specim en modera tely hemoly zed, K, AST and total protei n may be falsel y elevat ed Not Available Not Available 09:39:35 11/22/1911/21/2024 Compr ehens seth metab olic 2000 panel - Serum or Plasm a interpretati on and review of laboratory results Abnorm al Not Available Not Available 09:39:35 11/22/1911/21/2024 Chori ogona dotro pin.b eta subun it [Unit s/vol ume] in Serum or Plasm a choriogonado tropin.beta subunit [units/volum e] in serum or plasma text: mIU/mL Not Available Not Available 12/01/2024 09:39:35 11/22/1911/21/2024 Chori ogona dotro pin.b eta subun it [Unit s/vol ume] in Serum or Plasm a Unknown Analyte hCG Refere nce Range, mIU/mL : Nonpre gnant Female s 0-6.0 Perime nopaus al Female s ages 41-55* 0-7.7 Postme nopaus al Female s age >55* 0-14 Pregna nt Female s, Weeks after Last Menstr ual Period 0.2-1 week 5-50 1 - 2 weeks 50-500 2 - 3 weeks 100-50 00 3 - 4 weeks 500-10 ,000 4 - 5 weeks 1000-5 0,000 5 - 6 weeks 10,000 -100,0 00 6 - 8 weeks 15,000 -200,0 00 2 - 3 months 10,000 -100,0 00 Tropho blasti c Diseas e >100,0 00 *In higher than expect ed hCG in female s > age 40, a serum FSH >20 IU/L makes pregna ncy unlike ly. Not Available Not Available 09:39:35 Result Notes None recorded. Problems Name Problem SNOMED Code Status Onset Date Resolution Date Notes Provider Name and Address Organization Details Recorded Time Asthma 865906211 Active Payam Bautista MD Attn: Mandimelissa g,[address] [facility], [place], [address], [facility] 6 17:48:49 Diabetes mellitus 59416051 Active 020 RITO Jewell, [facility] 0 08:50:50 Uterine leiomyoma 01498380 Active 021 Norma bower, [facility] 1 12:33:33 Problem Notes None recorded. Procedures Surgical History Date Name Laterality Status Provider Name and Address Organization Details Recorded Time 1 Date of Last Pap Smear completed Carmen Sotomayor MA [facility] 05/25/2021 15:50:20 1 Endometrial Biopsy completed Norma Bradford [facility] 02/08/2021 12:32:23 1 Date of Last Mammogram completed Carmen Sotomayor MA [facility] 05/25/2021 15:49:14 ligation of fallopian tube completed Norma Bradford [facility] 01/11/2021 14:55:52 Imaging Results None recorded. Procedure Notes None recorded. Medical Equipment None Reported. Allergies Allergen ID Allergen Name Allergen Category Reaction Reaction Severity Criticality Documentation Date Start Date Code Code System Note Provider Name and Address Organization Details Recorded Time 076310 metformin medicatio n abdominal pain moderate high 06/22/20242019 0845 RxNorm OPAL MCKEE NP Attn: Mandimelissa g,[address] [facility], [place], [address], [facility] 5 15:19:44 Medications Name Sig Start Date Stop Date Status Note LastModified by Organization Details LastModified Time Prescripti on - New 05/25 completed Not Available Not Available Not Available Prescripti on - Prior Authorizat ion Request active Not Available Not Available Not Available cyclobenza kyelr 10 mg tablet 05/25 completed Not Available Not Available Not Available amoxicilli n 500 mg capsule 05/06 completed Not Available Not Available Not Available medroxypro gesterone 10 mg tablet 06/20 completed Not Available Not Available Not Available fluconazol e 100 mg tablet 05/25 completed Not Available Not Available Not Available metformin 500 mg tablet Take 1 tablet twice a day by oral route for 90 days. 04/13 completed GI upset Not Available Not Available Not Available Qvar 80 mcg/actuat ion Metered Aerosol oral inhaler INHALE 2 PUFFS BY MOUTH TWICE DAILY 05/06 completed Not Available Not Available Not Available clonidine HCl 0.1 mg tablet 05/25 completed Not Available Not Available Not Available prednisone 10 mg tablet TAKE 4 TABLETS BY MOUTH DAILY FOR 5 DAYS 03/23 completed Not Available Not Available Not Available cefuroxime axetil 250 mg tablet 12/29 completed Not Available Not Available Not Available nicotine 14 mg/24 hr daily transderma l patch PLACE 1 PATCH ON SKIN DAILY 06/20 completed Not Available Not Available Not Available ipratropiu m 0.5 mg-albuter ol 3 mg (2.5 mg base)/3 mL nebulizati on soln USE 3 ML VIA NEBULIZER FOUR TIMES DAILY DIRECTED 2024 active Not Available Not Available Not Avai lable albuterol sulfate 2.5 mg/3 mL (0.083 %) solution for nebulizati on USE 3 ML VIA NEBULIZER THREE TIMES DAILY DIRECTED active Not Available Not Available No t Available cetirizine 10 mg tablet TAKE 1 TABLET BY MOUTH DAILY NEEDED FOR ALLERGY SYMPTOMS 02/17 completed Not Available Not Available Not Available azithromyc in 250 mg tablet TAKE 2 TABLETS BY MOUTH FOR 1 DAY THEN TAKE 1 TABLET BY MOUTH DAILY 07/06 completed Not Available Not Available Not Available glyburide 5 mg tablet TAKE 1 TABLET BY MOUTH DAILY DIRECTED active Not Available Not Available No t Available ibuprofen 800 mg tablet 05/25 completed Not Available Not Available Not Available Lidocaine Viscous 2 % mucosal solution 05/25 completed Not Available Not Available Not Available fluconazol e 150 mg tablet TAKE 1 TABLET BY MOUTH DIRECTED 05/25 completed Not Available Not Available Not Available albuterol sulfate 1.25 mg/3 mL solution for nebulizati on USE 1 VIAL VIA NEBULIZER FOUR TIMES DAILY NEEDED FOR SHORTNESS OF BREATH OR WHEEZING 06/14 completed Not Available Not Available Not Available hydrocodon e 5 mg-acetami nophen 325 mg tablet 02/17 completed Not Available Not Available Not Available phenazopyr idine 200 mg tablet 05/25 completed Not Available Not Available Not Available lisinopril 20 mg tablet 04/10 completed Not Available Not Available Not Available ondansetro n HCl 4 mg tablet 06/20 completed Not Available Not Available Not Available prednisone 20 mg tablet TAKE 1 TABLET BY MOUTH DAILY active Not Available Not Available No t Available Tubersol 5 tub. unit/0.1 mL intraderma l injection solution Inject 0.1 mL by intraderm al route. 05/25 completed Not Available Not Available Not Available Alcohol Pads Apply 1 pad twice a day by topical route as directed for 90 days. 2023 active Not Available Not Available Not Avai lable prednisone 5 mg tablet 03/23 completed Not Available Not Available Not Available atenolol 50 mg-chlorth alidone 25 mg tablet Take 1 tablet every day by oral route for 30 days. 2024 active Not Available Not Available Not Avai lable metronidaz ole 500 mg tablet TAKE 1 TABLET BY MOUTH TWICE DAILY FOR 5 DAYS 05/25 completed Not Available Not Available Not Available amlodipine 5 mg tablet 05/06 completed Not Available Not Available Not Available prednisone 5 mg/5 mL oral solution TAKE 5 ML BY MOUTH TWICE DAILY FOR 5 DAYS 03/23 completed Not Available Not Available Not Available acetaminop hen 500 mg tablet 05/29 completed Not Available Not Available Not Available amoxicilli n 875 mg tablet TAKE 1 TABLET BY MOUTH TWICE DAILY FOR 7 DAYS 06/22 completed Not Available Not Available Not Available amlodipine 10 mg tablet TAKE 1 TABLET BY MOUTH DAILY 06/22 completed Not Available Not Available Not Available doxycyclin e monohydrat e 100 mg capsule TAKE 1 CAPSULE BY MOUTH TWICE DAILY FOR 7 DAYS 02/17 completed Not Available Not Available Not Available cephalexin 500 mg capsule 05/02 completed Not Available Not Available Not Available pantoprazo le 40 mg tablet,del ayed release TAKE 1 TABLET BY MOUTH EVERY DAY WITH MEALS 05/25 completed Not Available Not Available Not Available Guaifenesi n AC 10 mg-100 mg/5 mL oral liquid 05/02 completed Not Available Not Available Not Available prednisone 50 mg tablet TAKE 1 TABLET BY MOUTH DAILY FOR 5 DAYS 03/23 completed Not Available Not Available Not Available losartan 25 mg tablet TAKE 1 TABLET BY MOUTH EVERY DAY active Not Available Not Available No t Available nicotine 21 mg/24 hr daily transderma l patch 01/11 completed Not Available Not Available Not Available hydrochlor othiazide 12.5 mg capsule TAKE 1 CAPSULE BY MOUTH DAILY 06/22 completed Not Available Not Available Not Available docusate sodium 100 mg capsule TAKE ONE CAPSULE BY MOUTH TWICE DAILY 05/25 completed Not Available Not Available Not Available montelukas t 10 mg tablet TAKE 1 TABLET BY MOUTH EVERY DAY DIRECTED 2024 active Not Available Not Available Not Avai lable norethindr one acetate 5 mg tablet 05/29 completed Not Available Not Available Not Available ergocalcif cristhian (vitamin D2) 1,250 mcg (50,000 unit) capsule TAKE 1 CAPSULE BY MOUTH EVERY WEEK DIRECTED 2024 active Not Available Not Available Not Avai lable ibuprofen 600 mg tablet 06/20 completed Not Available Not Available Not Available polyethyle ne glycol 3350 17 gram/dose oral powder 06/20 completed Not Available Not Available Not Available levofloxac in 500 mg tablet 05/02 completed Not Available Not Available Not Available Q-Tussin 100 mg/5 mL oral liquid 05/25 completed Not Available Not Available Not Available methylpred nisolone 4 mg tablets in a dose pack FOLLOW PACKAGE DIRECTION S active Not Available Not Available No t Available albuterol sulfate HFA 90 mcg/actuat ion aerosol inhaler INHALE 2 PUFFS BY MOUTH FOUR TIMES DAILY NEEDED FOR SHORTNESS OF BREATH OR WHEEZING active Not Available Not Available No t Available ipratropiu m bromide 42 mcg (0.06 %) nasal spray 05/25 completed Not Available Not Available Not Available losartan 50 mg-hydroch lorothiazi de 12.5 mg tablet TAKE 1 TABLET BY MOUTH EVERY DAY IN THE MORNING 07/18 completed Not Available Not Available Not Available losartan 100 mg tablet Take 1 tablet every day by oral route for 90 days. 08/18 completed Not Available Not Available Not Available doxycyclin e hyclate 100 mg tablet TAKE 1 TABLET BY MOUTH TWICE DAILY FOR 10 DAYS DIRECTED 05/25 completed Not Available Not Available Not Available loratadine 10 mg tablet TAKE 1 TABLET DAILY 02/17 completed Not Available Not Available Not Available ipratropiu m bromide 0.02 % solution for inhalation 05/25 completed Not Available Not Available Not Available naproxen 500 mg tablet TAKE 1 TABLET BY MOUTH EVERY 12 HOURS NEEDED FOR PAIN. TAKE WITH FOOD OR MILK. 05/25 completed Not Available Not Available Not Available amoxicilli n 875 mg-potassi um clavulanat e 125 mg tablet TAKE 1 TABLET BY MOUTH EVERY 12 HOURS 02/03 completed Not Available Not Available Not Available nabumetone 500 mg tablet 05/25 completed Not Available Not Available Not Available amoxicilli n 500 mg-potassi um clavulanat e 125 mg tablet 05/06 completed Not Available Not Available Not Available oxycodone 5 mg tablet 06/20 completed Not Available Not Available Not Available neomycin-p olymyxin-h ydrocort 3.5 mg-10,000 unit/mL-1 % ear drops,susp 05/02 completed Not Available Not Available Not Available Blood Glucose Test strips Take 1 strip twice a day by miscell. route as directed for 90 days. 2023 active Not Available Not Available Not Avai lable azithromyc in 500 mg tablet TAKE 1 TABLET BY MOUTH ONCE DAILY FOR 3 DAYS 01/11 completed Not Available Not Available Not Available rosuvastat in 10 mg tablet TAKE 1 TABLET BY MOUTH EVERY DAY AT BEDTIME 2024 active Not Available Not Available Not Avai lable tiotropium bromide 18 mcg capsule with inhalation device INHALE THE CONTENTS OF 1 CAPSULE VIA INHALATIO N DEVICE DAILY 2024 active Not Available Not Available Not Avai lable nitrofuran toin monohydrat e/macrocry stals 100 mg capsule 01/11 completed Not Available Not Available Not Available Flovent HFA 220 mcg/actuat ion aerosol inhaler INHALE 1 PUFF BY MOUTH TWICE DAILY 09/14 completed Not Available Not Available Not Available Atrovent HFA 17 mcg/actuat ion aerosol inhaler INHALE 1 PUFF BY MOUTH EVERY 6 HOURS NEEDED FOR WHEEZING 02/17 completed Not Available Not Available Not Available losartan 100 mg-hydroch lorothiazi de 12.5 mg tablet TAKE 1 TABLET BY MOUTH EVERY DAY IN THE MORNING 07/20 completed Not Available Not Available Not Available Symbicort 160 mcg-4.5 mcg/actuat ion HFA aerosol inhaler INHALE 2 PUFFS BY MOUTH TWICE DAILY NEEDED 2024 active Not Available Not Available Not Avai lable FeroSul 325 mg (65 mg iron) tablet TAKE 1 TABLET BY MOUTH TWICE DAILY 02/17 completed Not Available Not Available Not Available Vios Aerosol Delivery System 05/25 completed Not Available Not Available Not Available Kilo [employer]an [facility] spacer 05/25 completed Not Available Not Available Not Available Spiriva Respimat 2.5 mcg/actuat ion solution for inhalation Inhale 2 puffs every day by inhalatio n route for 30 days. 2024 active Not Available Not Available Not Avai lable Incruse Ellipta 62.5 mcg/actuat ion powder for inhalation Inhale 1 puff every day by inhalatio n route for 30 days. 05/25 completed Not Available Not Available Not Available Flonase Allergy Relief 50 mcg/actuat ion nasal spray,susp ension [place] 1 spray twice a day by intranasa l route for 30 days. 2024 active Not Available Not Available Not Avai lable Spiriva Respimat 1.25 mcg/actuat ion solution for inhalation Inhale 2 puffs every day by inhalatio n route for 30 days. 04/20 completed Not Available Not Available Not Available fluticason e 113 mcg-salmet cristhian 14 mcg/actuat ion breath activated powdr INHALE 1 PUFF BY MOUTH TWICE DAILY DIRECTED 04/20 completed Not Available Not Available Not Available fluticason e 232 mcg-salmet cristhian 14 mcg/actuat ion breath activated powdr 05/10 completed Not Available Not Available Not Available Qvar RediHaler 80 mcg/actuat ion HFA breath activated aerosol INHALE 2 PUFFS BY MOUTH TWICE DAILY 05/25 completed Not Available Not Available Not Available Ozempic 0.25 mg or 0.5 mg (2 mg/1.5 mL) subcutaneo us pen injector Inject 0.5 mg every week by subcutane ous route as directed for 28 days. 08/25 completed Not Available Not Available Not Available OneTouch Ultra2 Meter USE TO MONITOR BLOOD SUGAR 2024 active Not Available Not Available Not Avai lable OneTouch Delica Plus Lancet 33 gauge active Not Available Not Available Not Available OneTouch Delica Plus Lancet 30 gauge USE DIRECTED 05/25 completed Not Available Not Available Not Available Kenalog-80 80 mg/mL suspension for injection Take 80 mg by injection route for 1 day. 05/25 completed Not Available Not Available Not Available Dupixent 300 mg/2 mL subcutaneo us pen injector active Not Available Not Available Not Available Ozempic 1 mg/dose (4 mg/3 mL) subcutaneo us pen injector INJECT 1 MG UNDER THE SKIN ONE DAY A WEEK FOR 28 DAYS active Not Available Not Available No t Available Paxlovid 300 mg (150 mg x 2)-100 mg tablets in a dose pack 03/22 completed Not Available Not Available Not Available Ozempic 0.25 mg or 0.5 mg (2 mg/3 mL) subcutaneo us pen injector Inject by subcutane ous route for 28 days. active Not Available Not Available No t Available Vitals Date Recorded Body height Body mass index (BMI) Body weight Oxygen saturation Heart rate Respiratory rate Body temperature Pain severity - 0-10 verbal numeric rating [Score] - Reported Systolic And Diastolic Provider Name and Address Organization Details Last Updated DateTime 168.91 cm 57.3 kg/m2 001090. 41 g 95 % 82 /min 20 /min 98.2 [degF] 0 168/104 mm[Hg] Andreina Kaye MA [facility] 5 11:40:33 Date Recorded Body height Body mass index (BMI) Body weight Oxygen saturation Heart rate Respiratory rate Body temperature Systolic And Diastolic Provider Name and Address Organization Details Last Updated DateTime 5 168.91 cm 56.8 kg/m2 001569. 18 g 98 % 86 /min 20 /min 98.2 [degF] 150/90 mm[Hg] Andreina Kaye MA [facility] 5 10:22:25 Date Recorded Body height Body mass index (BMI) Body weight Heart rate Body temperature Systolic And Diastolic Provider Name and Address Organization Details Last Updated DateTime 5 168.91 cm 55.7 kg/m2 876163. 05 g 74 /min 97.5 [degF] 123/79 mm[Hg] Maggy Diez MA [facility] 5 14:53:23 Date Recorded Body height Heart rate Body mass index (BMI) Body weight Body temperature Pain severity - 0-10 verbal numeric rating [Score] - Reported Systolic And Diastolic Provider Name and Address Organization Details Last Updated DateTime 5 168.91 cm 74 /min 55.6 kg/m2 002075. 33 g 97.5 [degF] 0 123/79 mm[Hg] Margi Pierce MA [facility] 5 14:20:06 Date Recorded Body height Body mass index (BMI) Body weight Oxygen saturation Heart rate Respiratory rate Body temperature Systolic And Diastolic Provider Name and Address Organization Details Last Updated DateTime 5 168.91 cm 55 kg/m2 685487. 66 g 99 % 86 /min 20 /min 98.4 [degF] 110/70 mm[Hg] Andreina Kaye MA [facility] 5 10:12:16 Social History Question Answer Notes LastModified by Organizat ion Details LastModified Time Tobacco Smoking Status Former Smoker quit june 2021 DANIEL Mcmullen, [facility] 08/02/2021 10:03:17 Do You Have An Advance Directive? Yes Information not available 05/25/2021 Are You Blind Or Do You Have Difficulty Seeing? No Information not available 05/25/2021 What Is Your Level Of Caffeine Consumption? Occasional Information not available 05/25/2021 In The 14 Days Before Symptom Onset, Have You Had Close Contact With A Laboratory-confir med COVID-19 While That Case Was Ill? No Information not available 05/25/2021 In The 14 Days Before Symptom Onset, Have You Had Close Contact With A Person Who Is Under Investigation For COVID-19 While That Person Was Ill? No Information not available 05/25/2021 Have You Been To An Area Known To Be High Risk For COVID-19? No Information not available 05/25/2021 Are You Deaf Or Do You Have Serious Difficulty Hearing? No Information not available 05/25/2021 What Type Of Diet Are You Following? DIABETIC [email or web address] Information not available 11/24/2023 What Is The Highest Grade Or Level Of School You Have Completed Or The Highest Degree You Have Received? [id number] Information not available 01/11/2021 Have There Been Any Changes To Your Family Or Social Situation? No Information no t available 01/11/2021 Are There Any Guns Present In Your Home? No Information not available 05/25/2021 Do You Have A Medical Power Of Automation Consultant? No [email or web address] Information not available 08/02/2021 What Was The Date Of Your Most Recent Tobacco Screening? 08/11/2024 [email or web address] Information not available 08/11/2024 How Many Children Do You Have? 6 Information not available 01/11/2021 What Is Your Current Pack Years? [email or web address] Information not available 01/11/2021 Do You Have Any Pets? No Information not available 01/11/2021 Do You Use Protection During Sex? Usually Information not available 01/11/2021 What Is Your Relationship Status? Information not available 01/11/2021 Do You Use Your Seat Belt Or Car Seat Routinely? Yes Information not available 01/11/2021 Are You Sexually Active? Yes Information not available 01/11/2021 Do You Have Smoke And Carbon Monoxide Detectors In Your Home? Yes Information not available 01/11/2021 At What Age Did You Start Smoking Tobacco? 26 Information not available 05/25/2021 Are You Passively Exposed To Smoke? Yes Information no t available 05/25/2021 How Much Tobacco Do You Smoke? 0.5 PPD Information not available 01/11/2021 Do You Use Sunscreen Routinely? No Information not available 01/11/2021 Has Tobacco Cessation Counseling Been Provided? Yes Information not available 06/22/2024 On What Date Was Tobacco Cessation Counseling Provided? 07/20/2024 Information not available 07/20/2024 How Many Years Have You Smoked Tobacco? 15 Information not available 05/25/2021 Sex: Female Functional Status Question Answer Note LastModified by Organizat ion Details LastModified Time Do you use any illicit or recreational drugs? No Information not available 05/25/2021 Do you or have you ever used any other forms of tobacco or nicotine? No Information not available 05/25/2021 What is your level of alcohol consumption? Occasional Information not available 05/25/2021 Are you currently employed? Yes Information not available 01/11/2021 Are you able to care for yourself independently? Yes Information not available 05/25/2021 What is your exercise level? None Information not available 05/25/2021 Mental Status Question Answer Note LastModified by Organization D etails LastModified Time Do you feel stressed (tense, restless, nervous, or anxious, or unable to sleep at night)? [id number] Information not available 05/25/2021 Family History Relationship Description Onset Age of this Age Resolved Age Notes LastModified by Organization Details LastModified Time Unspecified Relation Asthma [email or web address] Not available 021 14:28:10 Unspecified Relation Diabetes mellitus [email or web address] Not available 2020 14:28:18 Medical History Condition Response Coronary Artery Disease N Other N High Blood Pressure Y Atrial Fibrillation N Kidney or Bladder Problems N Thyroid Problems N GI Problems N Depression N COPD N Blood Clots N Skin Problems N Eating Disorder N Anemia N Heart Attack (HI) N Anxiety Disorder N Diabetes Y Muscle, Joint, or Bone Problems N Seizures/Epilepsy N Acid Reflux (GERD) N Cancer N Stroke N Asthma Y Allergies N ADHD N Substance Abuse N High Cholesterol N Hepatitis N Liver Disease N Schizophrenia N Headaches N Osteoporosis N Heart Failure N Gynecological History Statement/Question Response Abnormal Pap N Date of Last Mammogram 01/25/2021 Flow Heavy Date of LMP 05/01/2021 On BCP's at Conception? N Duration of Flow (days) 7 Most Recent Mammogram Age at Menarche 10 Current Control Method Tubal Ligat ion Frequency of Cycle (Q days) 27 Sexually Active? Y Menses Monthly Y Date of Last Pap Smear 02/22/2021 LMP Approximate Obstetrics History GPAL:G 6 P 5 1 0 6 Type Value Multiple Births 0 Full Term 5 Induced 0 Spontaneous 0 Premature 1 Living 6 Ectopics 0 Total 6 Immunizations Vaccine Type Date Status Note Provider Nam e and Address Organization Details Recorded Time Influenza, split virus, quadrivalent, PF 02/10/2018 completed Not Available [facility] 0 02:49:14 Hep B, adult 02/10/2018 completed Not Available [facility] 05/15/2019 02:34:28 Tdap 02/10/2018 completed Not Available [facility] 05/15/2019 02:39:20 Past Encounters Encounter ID Performer Location Encounter Start Date Encounter Closed Date Diagnosis/Indication Diagnosis SNOMED-CT Code Diagnosis ICD10 Code Diagnosis IMO Codes Diagnosis Note [id number] Payam Bautista MD [facility] (Adult/Fa m Med) [address] [place] [address] 08/10/2015 16:04:19 08/10/2015 17:54:05 Asthma 855227787 J45.408 [id number] Payam Bautista MD [facility] (Adult/Fa m Med) [address] [place] [address] 07/05/2016 15:02:23 07/12/2016 11:05:10 Asthma [id number] J45.356 [id number] Selwyn Rosen, [facility] (CHARGE ACCOUNT CLERK) [address] [place] [address] 11/28/2016 11:13:05 11/28/2016 14:44:45 Menorrhagia 378904839 N92.0 [id number] Selwyn Rosen [facility] (CHARGE ACCOUNT CLERK) [address] [place] [address] 01/02/2017 13:57:55 01/02/2017 16:31:15 Irregular periods 65761972 N92.6 [id number] Payam Bautista MD [facility] (Adult/Fa m Med) [address] [place], [place] [id number] 9 03/12/2017 15:19:44 03/31/2017 09:36:26 Asthma [id number] J45.239 [id number] Payam Bautista MD [facility] (Adult/Fa m Med) [address] [place], [place] [id number] 9 09/30/2017 15:04:50 10/02/2017 13:27:27 Asthma 777494626 J45.185 [id number] Payam Bautista MD [facility] (Adult/Fa m Med) [address] [place], [place] [id number] 9 02/10/2018 14:17:53 02/13/2018 10:41:03 Screening for disorder 516791916 Z13.9 Hypothyroidism 17662985 E03.9 [id number] Payam Bautista MD [facility] (Adult/Fa m Med) [address] [place], [place] [id number] 9 04/10/2018 11:56:31 04/10/2018 14:22:43 Asthma 713440635 J45.909 Morbid obesity 831960654 E66.01 [id number] Payam Bautista MD [facility] (Adult/Fa m Med) [address] [place] [address] 05/06/2019 10:59:37 05/06/2019 13:28:52 Asthma 729865776 J45.909 Bronchitis 72825488 J40 Moderate p ersistent asthma 775752276 J45.40 Nicotine dependence 5629 4008 F17.575 [id number] Payam Bautista MD [facility] (Adult/Fa m Med) [address] [place] [address] 08/06/2019 11:05:29 08/06/2019 14:06:51 Upper respiratory infection 31659732 J06.9 Asthma 065432730 J45.90 9 Morbid obesity 424004689 E66.01 [id number] Jaz Dubon MD [facility] [address] [place] [address] 12/20/2019 10:20:50 12/20/2019 15:34:27 Moderate persistent asthma 892511835 J45.40 Her asthma is not under control. She will continue with Symbicort 160/4.5, 2 puffs BID, Albuterol as needed. I will add Spiriva respimat and check PFTs, 6MWT, CBC, IgE. Morbid obesity 420658990 E66.01 She's working on weight reduction Obstructiv e sleep apnea syndrome 13042203 G47.33 I will start the patient on autoCPAP Nicotine dependence 5629 4008 F17.200 COunseled to quit for 5 minutes, 10PYH Allergic rhinitis 232931 04 J30.9 I will continue Singulair. I will add Flonase. Acute otitis media 27568 03 H66.90 Patient has acute otitis media [id number] Jaz Dubon MD [facility] [address] [place] [address] 12/30/2019 12:07:36 12/31/2019 17:21:43 Dyspnea on exertion 03802348 R06.09 Multifacto rial Moderate p ersistent asthma 018895031 J45.40 Her asthma is not under control. She will continue with Symbicort 160/4.5, 2 puffs BID, Albuterol as needed. I will add Incruse ellipta (Spiriva respimat is not covered) and check PFTs, 6MWT( patient has not done) Morbid obesity 407373828 E66.01 She's working on weight reduction Obstructiv e sleep apnea syndrome 64091302 G47.33 I will start the patient on autoCPAP( was not done) Allergic rhinitis 850392 04 J30.9 I will continue Singulair. I will add Flonase. Nicotine dependence 5629 4008 F17.200 COunseled to quit for 5 minutes, 10PYH [id number] Jaz Dubon MD [facility] [address] [place] [address] 04/20/2020 10:55:32 04/20/2020 13:03:44 Moderate persistent asthma 161583484 J45.40 Her asthma is not under control. She will continue with Symbicort 160/4.5, 2 puffs BID, Albuterol as needed. I will add Spiriva handihaler (Spiriva respimat and Incruse ellipta are not covered) FEV1 48%, FVC 48%, FEV1/FVC 88%, BD-, TLC 88%, DLCO 53% (2019) Morbid obesity 001114403 E66.01 She's working on weight reduction, ERV 16% Nicotine dependence 5629 4008 F17.200 COunseled to quit for 5 minutes, 10PYH Obstructiv e sleep apnea syndrome 21761854 G47.33 I will start the patient on autoCPAP( has not started) Allergic rhinitis 556907 04 J30.9 I will continue Singulair and Flonase. Fatigue 93365783 R53.83 Multifacto rial [id number] Elvis [place] MD [facility] [address] [place] [address] 05/02/2020 14:21:24 05/03/2020 12:39:50 Myopia 15744544 H52.13 Type 2 heidi betes mellitus without complication 140274229 E11.9 [id number] Payam Bautista MD [facility] (Adult/Fa m Med) [address] [place] [address] 05/31/2020 10:55:36 06/20/2020 03:47:21 Asthma 257631388 J45.909 Diabetes mellitus 295513 09 E11.9 [id number] Jaz Dubon MD [facility] [address] [place] [address] 09/14/2020 10:14:15 09/14/2020 16:40:22 Moderate persistent asthma 089255662 J45.40 Her asthma is not under control. She will continue with Symbicort 160/4.5, 2 puffs BID, Albuterol as needed. I will add Spiriva handihaler (Spiriva respimat and Incruse ellipta are not covered) FEV1 48%, FVC 48%, FEV1/FVC 88%, BD-, TLC 88%, DLCO 53% (2020) Obstructiv e sleep apnea syndrome 07977651 G47.33 I will start the patient on autoCPAP( has not started) Morbid obesity 800099864 E66.01 She's working on weight reduction, ERV 16% Nicotine dependence 5629 4008 F17.200 10PYH, quit smoking 2020 Allergic rhinitis 741506 04 J30.9 I will continue Singulair and Flonase. Insomnia 093495996 G47.0 0 Advised about sleep hygiene and possibly taking Benadryl. Fatigue 77106804 R53.83 Multifacto rial [id number] Jaz Dubon MD [facility] [address] [address] 10/12/2020 10:30:35 10/13/2020 14:02:22 Moderate persistent asthma 457958851 J45.40 Her asthma is not under control. She will continue with Symbicort 160/4.5, 2 puffs BID, Albuterol as needed. I will add Spiriva handihaler (Spiriva respimat and Incruse ellipta are not covered) FEV1 48%, FVC 48%, FEV1/FVC 88%, BD-, TLC 88%, DLCO 53% (2020) Obstructiv e sleep apnea syndrome 79358743 G47.33 I will start the patient on autoCPAP( has not started) Morbid obesity 013084650 E66.01 She's working on weight reduction, ERV 16% Nicotine dependence 5629 4008 F17.200 10PYH, quit smoking 2020 Allergic rhinitis 525628 04 J30.9 I will continue Singulair and Flonase. Insomnia 222175855 G47.0 0 Advised about sleep hygiene and possibly taking Benadryl. Fatigue 65442347 R53.83 Multifacto rial [id number] Norma Bradford MD [address] [address] 01/11/2021 13:52:11 01/11/2021 15:47:50 Screening for malignant neoplasm of breast 284680430 Z12.39 order MMG Abnormal u terine bleeding 7170286836 9100 N93.9 -not dizzy or light headed with ambulation -check CBC-schedu led for EMB-start iron/colac e Cigarette smoker 7152634 7 F17.210 advised to quitreport s having hallucinat ions with the nicotine patches. Morbid obesity 022837842 E66.01 -Reports losing 79 lbs since September 2019-Repor ts decreasing sweets and carbs from diet.-cont inue dietary changes Pelvic mass 45620791 R19 .00 2017 US with 2 cm right adnexall mass/possi ble dermoid.-o rder pelvic US Blood pres sure above reference range 91870654 R03.0 -patient previously prescribe amlodipine by primary care doctor-pat ient reports that she does not have high blood pressure and is not taking the medication -recommend starting BP medication and following with primary care. [id number] Norma Bradford MD [address] [address] 02/08/2021 11:43:25 02/08/2021 12:37:10 Abnormal uterine bleeding 1889344264 9100 N93.9 -reports compliance with iron/colac e-US with multiple uterine fibroids-E MB today-F/U in 2 weeks Cyst of ovary 95037244 N 83.209 -Right ovarian mass appears consisiten t with dermoid-CT with contrast recommendhomer romero [id number] Norma Bradford MD [address] [address] 02/22/2021 10:41:08 02/22/2021 13:52:23 Chronic endometritis 72475602 N71.1 thick white discharge on pelvic exam. Probable yeast Abnormal u terine bleeding 8759657376 9100 N93.9 -reports compliance with iron/colac e-enlarged uterus (14cm)-US with multiple uterine fibroids-E MB with chronic endometrit is-Has MRI scheduled for Feb 28-referral to [facility] Pelvic mass 70390692 R19 .00 2017 US with 2 cm right adnexal mass/possi ble dermoid.20 21 US with increased size of right adnexal mass 4.4/probab le dermoidCA1 25 and CEA orderedrec bebeto tompkins for MRI [id number] Jaz Dubon MD [facility] [address] [place] [address] 05/10/2021 09:55:42 05/21/2021 13:16:57 Moderate persistent asthma 996957017 J45.40 Her asthma is not under control. She will continue with Symbicort 160/4.5, 2 puffs BID, Albuterol as needed. I will add Spiriva handihaler (Spiriva respimat and Incruse ellipta are not covered) FEV1 48%, FVC 48%, FEV1/FVC 88%, BD-, TLC 88%, DLCO 53% (2019) Morbid obesity 022603870 E66.01 She's working on weight reduction, ERV 16% Obstructiv e sleep apnea syndrome 76224256 G47.33 I will start the patient on autoCPAP( has not started) Allergic rhinitis 018511 04 J30.9 I will continue Singulair and Flonase. Nicotine dependence 5629 4008 F17.200 10PYH, quit smoking 2020 Insomnia 584144299 G47.0 0 Advised about sleep hygiene and possibly taking Benadryl. Fatigue 86084994 R53.83 Multifacto rial [id number] Opal Mckee NP [address] [address] 05/25/2021 15:12:50 05/26/2021 09:52:29 Type 2 diabetes mellitus 48992266 E11.9 Essential hypertension 23352631 I10 Morbid obesity 246423840 E66.01 [id number] Norma Bradford MD [address] [address] 05/28/2021 15:52:33 05/28/2021 16:25:33 Abnormal uterine bleeding 3078373972 9100 N93.9 -seen in [facility] by Dr. Ruth Barclay-wants to discuss surgical options. Patient referred back to Dr. Barclay.-Obesi ty-enlarge d uterus (14cm)-US with multiple uterine fibroids-E MB with chronic endometrit is-Has MRI done Nov 3 Pelvic mass 17313653 R19 .00 2017 US with 2 cm right adnexal mass/possi ble dermoid.20 21 US with increased size of right adnexal mass 4.4/probab le dermoidCA1 25 and CEA nml [id number] Jaz Dubon MD [facility] [address] [place] [address] 08/02/2021 09:54:32 08/02/2021 15:17:32 Obstructive sleep apnea syndrome 46154166 G47.33 patient needs new home sleep study Moderate p ersistent asthma 785711792 J45.40 Her asthma is not under control. She will continue with Symbicort 160/4.5, 2 puffs BID, Albuterol as needed. I will add Spiriva handihaler (Spiriva respimat and Incruse ellipta are not covered) FEV1 48%, FVC 48%, FEV1/FVC 88%, BD-, TLC 88%, DLCO 53% (2019) Morbid obesity 346850831 E66.01 She's working on weight reduction, ERV 16% Nicotine dependence 5629 4008 F17.200 10PYH, quit smoking 2020 Allergic rhinitis 214318 04 J30.9 I will continue Singulair and Flonase. Insomnia 460088946 G47.0 0 Advised about sleep hygiene and possibly taking Benadryl. Fatigue 39946224 R53.83 Multifacto rial Pre-surger y evaluation 315256968 Z01.818 Patient is slightly above average for nuzhat surgical complicati on 2-5%, BDs, BIPAP after surgery, IS, Ambulation , DVT and stress ulcer prophylaxi s are needed. [id number] Sunshine Wade MD [address] [address] 09/14/2021 11:16:31 09/17/2021 14:32:23 Essential hypertension 61604148 I10 losartan increased to 100mg Adult heal th examination 278575569 Z00.00 medical clearance pending lab results Morbid obesity 363292399 E66.01 Body mass index 40+ - severely obese 813042925 Z68.43 Diabetes mellitus 167906 09 E11.9 Type 2 heidi betes mellitus 19685520 E11.9 Moderate p ersistent asthma 988707535 J45.40 pt is being followed by pulmonolog y [id number] Jaz Dubon MD [facility] [address] [place] [address] 01/21/2022 11:03:42 01/21/2022 12:28:33 Obstructive sleep apnea syndrome 89720911 G47.33 Repeated sleep stdy showed AHI 11/hour, will order auto CPAP Moderate p ersistent asthma 523032642 J45.40 Her asthma is not under control. She will continue with Symbicort 160/4.5, 2 puffs BID, Albuterol as needed. I will add Spiriva handihaler (Spiriva respimat and Incruse ellipta are not covered) FEV1 48%, FVC 48%, FEV1/FVC 88%, BD-, TLC 88%, DLCO 53% (2019), repeated PFTs showed FEV1 74%, FVC 87%, FEV1/FVC 70%, TLC 80%, DLCO 88%, FEV25/75% 46%,BD-() Morbid obesity 945612420 E66.01 She's working on weight reduction, ERV 16% Nicotine dependence 5629 4008 F17.200 10PYH, quit smoking 2020 Allergic rhinitis 404793 04 J30.9 I will continue Singulair and Flonase. Fatigue 94438625 R53.83 Multifacto rial Insomnia 630189065 G47.0 0 Advised about sleep hygiene and possibly taking Benadryl. [id number] Jaz Dubon MD [facility] [address] [place] [address] 06/06/2022 10:29:59 06/06/2022 14:39:35 Moderate persistent asthma 709975460 J45.40 Her asthma is not under control. She will continue with Symbicort 160/4.5, 2 puffs BID, Albuterol as needed. I will add Spiriva handihaler (Spiriva respimat and Incruse ellipta are not covered) FEV1 48%, FVC 48%, FEV1/FVC 88%, BD-, TLC 88%, DLCO 53% (2019), repeated PFTs showed FEV1 74%, FVC 87%, FEV1/FVC 70%, TLC 80%, DLCO 88%, FEV25/75% 46%,BD-(). I told her that if she continue to have trouble with asthma , we needs to add Dupixent. Obstructiv e sleep apnea syndrome 88815836 G47.33 Repeated sleep stdy showed AHI 11/hour, will continue aut CPAP, I will get a download Morbid obesity 224568239 E66.01 She's working on weight reduction, ERV 16% Nicotine dependence 5629 4008 F17.200 10PYH, quit smoking 2020 Allergic rhinitis 223639 04 J30.9 I will continue Singulair and Flonase. Insomnia 715966955 G47.0 0 Advised about sleep hygiene and possibly taking Benadryl. Fatigue 80318240 R53.83 Multifacto rial [id number] [facility] [address] [place] [address] 02/03/2023 11:30:14 02/10/2023 09:49:12 Moderate persistent asthma 454703334 J45.40 Her asthma is not under control. She will continue with Symbicort 160/4.5, 2 puffs BID, Albuterol as needed. I will add Spiriva handihaler (Spiriva respimat and Incruse ellipta are not covered) FEV1 48%, FVC 48%, FEV1/FVC 88%, BD-, TLC 88%, DLCO 53% (2019), repeated PFTs showed FEV1 74%, FVC 87%, FEV1/FVC 70%, TLC 80%, DLCO 88%, FEV25/75% 46%,BD-(). I told her that if she continue to have trouble with asthma , we needs to add Dupixent. , will repeat PFTs Morbid obesity 876842821 E66.01 She's working on weight reduction, ERV 16% Acute bron chitis with bronchospasm 75380939 J20.9 see above for management , was advised to go to ER if condition worsened Tobacco de pendence in remission 290076809 F17.201 10PY, quit 2020. Allergic rhinitis 676310 04 J30.9 I will continue Singulair and Flonase. Insomnia 558260630 G47.0 0 Advised about sleep hygiene and possibly taking Benadryl. Fatigue 31858802 R53.83 Multifacto rial Obstructiv e sleep apnea syndrome 26815950 G47.33 Repeated sleep stdy showed AHI 11/hour, will continue aut CPAP, I will get a download [id number] Jaz Dubon MD [facility] [address] [place] [address] 09/08/2023 09:35:37 09/08/2023 10:30:53 Moderate persistent asthma 041868032 J45.40 Her asthma is not under control. She will continue with Symbicort 160/4.5, 2 puffs BID, Albuterol as needed. I will add Spiriva handihaler (Spiriva respimat and Incruse ellipta are not covered) FEV1 48%, FVC 48%, FEV1/FVC 88%, BD-, TLC 88%, DLCO 53% (2019), repeated PFTs showed FEV1 74%, FVC 87%, FEV1/FVC 70%, TLC 80%, DLCO 88%, FEV25/75% 46%,BD-(). I told her that if she continue to have trouble with asthma , we needs to add Dupixent. , will repeat PFTs Morbid obesity 918155370 E66.01 She's working on weight reduction, ERV 16% Acute bron chitis with bronchospasm 05862228 J20.9 see above for management , was advised to go to ER if condition worsened Tobacco de pendence in remission 750284682 F17.201 10PY, quit 2020. Allergic rhinitis 175505 04 J30.9 I will continue Singulair and Flonase. Insomnia 555287954 G47.0 0 Advised about sleep hygiene and possibly taking Benadryl. Fatigue 25779969 R53.83 Multifacto rial Obstructiv e sleep apnea syndrome 97425340 G47.33 Repeated sleep stdy showed AHI 11/hour, will continue aut CPAP, I will get a download( she has not been using and was advised about the complicati on of LELA) [id number] MARIEL GOLDBERG MD [facility] [address] [place] [address] 11/24/2023 20:04:04 11/27/2023 09:00:24 Morbid obesity 501769060 E66.01 Exposure t o SARS-CoV-2 214656720 Z20.955 [id number] Jaz Dubon MD [facility] [address] [place] [address] 12/08/2023 09:35:08 12/09/2023 09:43:27 Moderate persistent asthma 878823003 J45.40 Her asthma is not under control. She will continue with Symbicort 160/4.5, 2 puffs BID, Albuterol as needed. I will add Spiriva handihaler (Spiriva respimat and Incruse ellipta are not covered) FEV1 48%, FVC 48%, FEV1/FVC 88%, BD-, TLC 88%, DLCO 53% (2019), repeated PFTs showed FEV1 74%, FVC 87%, FEV1/FVC 70%, TLC 80%, DLCO 88%, FEV25/75% 46%,BD-(). I told her that if she continue to have trouble with asthma , we needs to add Dupixent. , will repeat PFTs Morbid obesity 275500545 E66.01 She's working on weight reduction, ERV 16% Acute bron chitis with bronchospasm 88413935 J20.9 see above for management , was advised to go to ER if condition worsened Tobacco de pendence in remission 046953050 F17.201 10PY, quit 2020. Allergic rhinitis 609113 04 J30.9 I will continue Singulair and Flonase. Insomnia 061622284 G47.0 0 Advised about sleep hygiene and possibly taking Benadryl. Fatigue 14673220 R53.83 Multifacto rial Obstructiv e sleep apnea syndrome 24786451 G47.33 Repeated sleep stdy showed AHI 11/hour, will continue aut CPAP, I will get a download( she has not been using and was advised about the complicati on of LELA) [id number] MARIEL GOLDBERG MD [facility] [address] [place] [address] 01/19/2024 16:54:29 01/21/2024 11:30:35 Morbid obesity 176501877 E66.01 Exacerbati on of intermittent asthma 387376969 J45.21 [id number] Jaz Dubon MD [facility] [address] [place] [address] 03/08/2024 09:22:19 03/08/2024 12:02:11 Moderate persistent asthma 772915670 J45.40 Her asthma is not under control. She will continue with Symbicort 160/4.5, 2 puffs BID, Albuterol as needed. I will add Spiriva handihaler (Spiriva respimat and Incruse ellipta are not covered) FEV1 48%, FVC 48%, FEV1/FVC 88%, BD-, TLC 88%, DLCO 53% (2019), repeated PFTs showed FEV1 74%, FVC 87%, FEV1/FVC 70%, TLC 80%, DLCO 88%, FEV25/75% 46%,BD-(). I told her that if she continue to have trouble with asthma , we needs to add Dupixent(s he has not received). , PFTs FEV1 53%, FVC 57%, FEV1/FVC 75%, DLCO 70%, DLCO 101% Morbid obesity 956449780 E66.01 She's working on weight reduction, ERV 16% Tobacco de pendence in remission 018876887 F17.201 10PY, quit 2020. Allergic rhinitis 090408 04 J30.9 I will continue Singulair and Flonase. Insomnia 787105904 G47.0 0 Advised about sleep hygiene and possibly taking Benadryl. Fatigue 47817230 R53.83 Multifacto rial Obstructiv e sleep apnea syndrome 60043509 G47.33 Repeated sleep stdy showed AHI 11/hour, She has not received auto CPAP Air trapping [id number] J9 8.8 RV 178% [id number] OPAL MCKEE NP [facility] (Adult/Fa m Med) [address] [place] [address] 03/23/2024 10:58:42 03/24/2024 14:20:42 Diabetes mellitus 10782492 E11.9 Take your diabetes medication dailycheck blood sugars fasting and post prandial --keep a log--bring to next appointmen tstop concentrat ed sugars--fo llow 1500 meal planexerci se 50-60 minutes daily on most dayscheck your feet for sores, cuts, etc.,see eye doctor once a yearsee dentist every 6 monthsRein forced diabetes compliance ; reviewed potential complicati ons of uncontroll ed diabetes Body mass index 40+ - severely obese 810976992 Z68.43 Tolerant non-smoker 8773 9003 Z87.891 Adult heal th examination 487999960 Z00.00 [id number] Jaz Dubon MD [facility] [address] [place] [address] 06/14/2024 11:25:23 06/15/2024 13:41:11 Moderate persistent asthma 141324874 J45.40 Her asthma is not under control. She will continue with Symbicort 160/4.5, 2 puffs BID, Albuterol as needed. I will add Spiriva handihaler (Spiriva respimat and Incruse ellipta are not covered) FEV1 48%, FVC 48%, FEV1/FVC 88%, BD-, TLC 88%, DLCO 53% (2019), repeated PFTs showed FEV1 74%, FVC 87%, FEV1/FVC 70%, TLC 80%, DLCO 88%, FEV25/75% 46%,BD-(). I told her that if she continue to have trouble with asthma , we needs to add Dupixent(s he has not received). , PFTs FEV1 53%, FVC 57%, FEV1/FVC 75%, DLCO 70%, DLCO 101%(2023) Morbid obesity 412234997 E66.01 She's working on weight reduction, ERV 16% Tobacco de pendence in remission 420490237 F17.201 10PY, quit 2020. Allergic rhinitis 140385 04 J30.9 I will continue Singulair and Flonase. Insomnia 245977483 G47.0 0 Advised about sleep hygiene and possibly taking Benadryl. Fatigue 86826902 R53.83 Multifacto rial Obstructiv e sleep apnea syndrome 80602750 G47.33 Repeated sleep stdy showed AHI 11/hour, She has not received auto CPAP Air trapping 14763647 J9 8.8 RV 178% [id number] OPAL MCKEE NP [facility] (Adult/Fa m Med) [address] [place] [address] 06/22/2024 13:38:56 06/23/2024 14:44:38 Diabetes mellitus 40870163 E11.9 Take your diabetes medication dailycheck blood sugars fasting and post prandial --keep a log--bring to next appointmen tstop concentrat ed sugars--fo llow 1500 meal planexerci se 50-60 minutes daily on most dayscheck your feet for sores, cuts, etc.,see eye doctor once a yearsee dentist every 6 monthsRein forced diabetes compliance ; reviewed potential complicati ons of uncontroll ed diabetes Body mass index 40+ - severely obese 684226322 Z68.43 Ex-smoker 6519307 Z87.89 1 Essential hypertension 88056585 I10 losartan increased to 100mgPt bp is elevatedpt to f/u in 2 weeks for bp f/u Screening mammography 24 361196 Z12.31 [id number] OPAL MCKEE NP [facility] (Adult/Fa m Med) [address] [place] [address] 07/06/2024 11:19:56 07/19/2024 08:45:53 Diabetes mellitus 17068876 E11.9 Take your diabetes medication dailycheck blood sugars fasting and post prandial --keep a log--[facility]--fo llow 1500 meal planexerci se 50-60 minutes daily on most dayscheck your feet for sores, cuts, etc.,see eye doctor once a yearsee dentist every 6 monthsRein forced diabetes compliance ; reviewed potential complicati ons of uncontroll ed diabetes Body mass index 40+ - severely obese 819846228 Z68.43 Ex-smoker 0592285 Z87.89 1 Essential hypertension 11947387 I10 losartan increased to 100mgPt bp is elevatedpt to f/u in 2 weeks for bp f/u [id number] OPAL MCKEE NP [facility] (Adult/Fa m Med) [address] [place] [address] 07/20/2024 09:57:08 07/26/2024 11:48:46 Diabetes mellitus 73710070 E11.9 Take your diabetes medication dailycheck blood sugars fasting and post prandial --keep a log--bring to next appointmen tstop concentrat ed sugars--fo llow 1500 meal planexerci se 50-60 minutes daily on most dayscheck your feet for sores, cuts, etc.,see eye doctor once a yearsee dentist every 6 monthsRein forced diabetes compliance ; reviewed potential complicati ons of uncontroll ed diabetes Body mass index 40+ - severely obese 417725632 Z68.43 Ex-smoker 0468818 Z87.89 1 Morbid obesity 611365022 E66.01 Essential hypertension 47505124 I10 patient started on atenolol with chlorthali done we will check potassium todayPt bp is elevatedpt to f/u in 2 weeks for bp f/u [id number] Elvis Hatfield MD [facility] [address] [place] [address] 08/11/2024 13:50:00 08/12/2024 12:56:42 Presbyopia 00409976 H52.4 Diabetes mellitus 891496 09 E11.9 [id number] Max Cooper DPM 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 5266134538 102 E11.628 Foot callus 644242837 L8 4 [id number] OPAL MCKEE NP [facility] (Adult/Fa m Med) [address] [place] [address] 08/18/2024 10:02:13 08/26/2024 09:18:22 Diabetes mellitus 32832272 E11.9 Take your diabetes medication dailycheck blood sugars fasting and post prandial --keep a log--bring to next appointmen tstop concentrat ed sugars--fo llow 1500 meal planexerci se 50-60 minutes daily on most dayscheck your feet for sores, cuts, etc.,see eye doctor once a yearsee dentist every 6 monthsRein forced diabetes compliance ; reviewed potential complicati ons of uncontroll ed diabetesOz empic increased to 1 mg weekly Morbid obesity [id number] E66.01 Smoker [id number] F17.200 Essential hypertension [id number] [id number] patient started on atenolol with chlorthali done we will check potassium todayPt bp is controlled pt to f/u in 3 months Health Concerns Section Related Observation LastModified by Organization Detai ls LastModified Time None Recorded Concern Status LastModified by Organization Details LastModified Time None Recorded Advance Directives Directive Y: Payers Insurance Date Sequence Insurance Name Policy Number Policy Jeffers Covered Member ID Jeffers Member ID Guarantor Name 08/26/2024 1 [employer] [id number] Shayna Platt [id number] Shayna Platt 11/24/2023 1 [place] [facility] Shayna Platt [id number] Shayna Platt 06/21/2024 2 [facility] (MEDICAID HMO) [id number] Shayna Platt [id number] Shayna Platt 11/24/2023 1 [facility] (MEDICAID HMO) [id number] Shayna Platt [id number] Shayna Platt 11/24/2023 1 [facility] (MEDICAID HMO) [id number] Shayna Platt [id number] Shayna Platt Notes Date Note Type Note Provider Name and Address Organization Details Recorded Time 5 text/html DiabetesReported by PatientHPIFor compliance, patient reportsnoncompliant with medications,noncompliant with followup-visits,noncompl iant with diet, andnoncompliant with home glucose monitoring. For duration, patient reportschronic. For onset/timing, patient reportsdiagnosed on:. For control, patient reportsimproved since last visit,treated with diet and oral medications,hemoglobin a1c has been greater than 9, andhemoglobin a1c goal is less than 7. For self care, patient reportsmonitoring glucose __. For associated symptoms, patient reportsno weight gain,no weight loss,no dizziness,no sweats,no headaches,no confusion,no increased thirst,no increased appetite,no increased urination,no blurred vision,no numbness of feet, andno calluses on feet. Hypertension F/UReported by PatientHPIFor lifestyle, patient reportsnot exercising regularlyandhigh salt intake. For associated symptoms, patient reportsno dizziness,no lightheadedness,no chest pain,no shortness of breath,no palpitations,no edema, andno calf pain with exertion. For medications, patient reportstaking medications as directedandno side effects from medication.ROS as noted in the [facility] 44-year-old female presents today to for a htn follow-up. patient has a history of poorly controlled type 2diabetes however her A1C is now 5.3. However her bp remains elevated. OPAL MCKEE NP Attn: Accounting,[address] [facility], [place], [address], [place] [facility] 07/18/2024 15:19:05 5 text/html DiabetesReported by PatientHPIFor compliance, patient reportsnoncompliant with diet. For duration, patient reportschronic. For onset/timing, patient reportsdiagnosed on:. For control, patient reportsimproved since last visit,treated with diet and oral medications,hemoglobin a1c has been greater than 9, andhemoglobin a1c goal is less than 7. For self care, patient reportsmonitoring glucose __. For associated symptoms, patient reportsno weight gain,no weight loss,no dizziness,no sweats,no headaches,no confusion,no increased thirst,no increased appetite,no increased urination,no blurred vision,no numbness of feet, andno calluses on feet. Hypertension F/UReported by PatientHPIFor lifestyle, patient reportsnot exercising regularlyandhigh salt intake. For associated symptoms, patient reportsno dizziness,no lightheadedness,no chest pain,no shortness of breath,no palpitations,no edema, andno calf pain with exertion. For medications, patient reportstaking medications as directedandno side effects from medication.ROS as noted in the [facility] 44-year-old female presents today for hypertension follow-up patient admits that she is compliant with the medications however she states that she continues to have swelling in her bilateral lower extremities up past her ankles. she admits that she continues to smoke half a pack a day she is not quite ready to quit but does recognize that she needs to. she has not started her Ozempic at as it has not been available at the pharmacy however she did receive a phone call stating that it is there today she plans on picking it up OPAL MCKEE NP Attn: Accounting,[address], [place], [address], [facility] 07/21/2024 19:26:20 5 text/html DM , since a few years. NO other problem Elvis Hatfield MD [address], [place], [address], [facility] 08/11/2024 14:53:41 5 text/html ROS as noted in the HPI Patient presents to clinic for diabetic foot exam. She relates that her blood sugars are well controlled and she denies any issues at this time. Max Cooper DPCarrie [address], [place], [address], [facility] 08/11/2024 15:18:20 5 text/html DiabetesReported by PatientHPIFor compliance, patient reportsnoncompliant with diet. For duration, patient reportschronic. For onset/timing, patient reportsdiagnosed on:. For control, patient reportsimproved since last visit,treated with diet and oral medications,hemoglobin a1c has been greater than 9, andhemoglobin a1c goal is less than 7. For self care, patient reportsmonitoring glucose __. For associated symptoms, patient reportsno weight gain,no weight loss,no dizziness,no sweats,no headaches,no confusion,no increased thirst,no increased appetite,no increased urination,no blurred vision,no numbness of feet, andno calluses on feet. Hypertension F/UReported by PatientHPIFor lifestyle, patient reportsnot exercising regularlyandhigh salt intake. For associated symptoms, patient reportsno dizziness,no lightheadedness,no chest pain,no shortness of breath,no palpitations,no edema, andno calf pain with exertion. For medications, patient reportstaking medications as directedandno side effects from medication.ROS as noted in the HPI 44-year-old female presents today for hypertension follow-up patient was recently started on atenolol with chlorthalidone she states that she is tolerating it well her blood pressure is controlled and she states that she no longer experiences any swelling in her lower extremities however patient does admit that she did stop taking the losartan ( she was not instructed to) OPAL MCKEE NP Attn: Accounting,[address] [facility], [place], [address], [facility] 08/26/2024 00:47:46 OBGyn Episode No OBEpisode recorded.
--- OUTSIDE RECORDS SUMMARY | 2025-04-02 09:39 | XMS_ITS | Clinical Summary ---
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 AVG GLUCOSE, A1C 88 mg/dL 01/10/2022 10:06 PM CDT [facility] Blood Venipuncture / Unknown 01/10/2022 8:54 PM CDT 01/10/2022 9:49 PM CDT Narrative [facility] - 01/10/2022 10:06 PM CDT HGB A1C INTERPRETATION NORMAL: <5.7% PRE-DIABETES: 5.7 - 6.4% DIABETES: 6.5% OR GREATER us Kirit Martinez MD CHEMISTRY ORDERABLES Final Re sult [facility] [employer] [facility] [id number] [address] [place] [id number] from Last 3 Months or Most Recently Relevant to Health Maintenance Insurance [employer] MED[place] RX [facility] [employer] Advance Directives For more information, please contact: [phone] * Default Full Code - Needs Discussion (Latest Code Status on File) Date Activated Date Inactivated Comments 01/11/2022 7:40 AM 01/11/2022 9:52 AM
--- NOTE | 2025-04-02 09:42 | ECG_ITS ---
Test Date: 2025-04-02 09:48:10 Measurements Intervals [place] Rate: 105 P: 76 [place]: 137 QRS: 27 QRSD: 88 T: 11 QT: 328 QTc: 434 Interpretive Statements SINUS TACHYCARDIA DELAYED PRECORDIAL R/S TRANSITION BASELINE ARTIFACT- I, III, AVR, AVF, V1 BORDERLINE ECG Compared to ECG 02/23/2025 07:44:09 HEART RATE HAS INCREASED Electronically Signed On 04-02-2025 16:00:18 LINING STITCHER by Froy Sandoval D.O.
[2025-04-02 09:44] VITALS: BP 116/68; BP 139/129; PULSE 108; PULSE 95; RESP 22; RESP 26; TEMP 36.3; TEMP 37.1; O2SAT 100; O2SAT 98
[2025-04-02 10:07] LABS: Hematocrit 37.9 % (37.0-47.0); Hemoglobin 12.4 g/dL (12.0-15.0); Immature Granulocyte Percent A 0.5 % (0-0.5); Lymphocytes Absolute Auto 3.12 K/mm3 (0.9-3.2); Mean Corpuscular HGB Conc 32.7 g/dl (32-36); Mean Corpuscular Hemoglobin 27.4 pg (26-34); Mean Corpuscular Volume 83.7 fl (80-100); Nucleated Red Blood Cells Absolute Auto 0.000 K/mm3 (0.0-0.012); Nucleated Red Blood Cells Perc 0.0 % (0.0-0.2); Platelet Count Result 280 k/mm3 (150-375); Red Blood Count 4.53 M/mm3 (4.2-5.4); White Blood Count 9.7 K/mm3 (4.5-10.0)
[2025-04-02] MEDS: ALBUTEROL SULFATE NEB 2.5 MG/3 ML INH 10 MG INHALATION (10:08)
[2025-04-02] MEDS: IPRATROPIUM BR 0.02% INH SOLN 0.5 MG/2.5 ML VIAL 1 MG INHALATION (10:08)
[2025-04-02 10:09] VITALS: PULSE 94; RESP 20
[2025-04-02 10:14] LABS: Fractional Inspired Oxygen 21 %; HCO3 VBG 21.0 mEq/l (24.0-30.0); PCO2 VBG 32.5 mmHg (42.0-48.0); PO2 VBG 54.5 mmHg (35.0-45.0)
[2025-04-02 10:16] LABS: pH VBG 7.429 (7.300-7.400)
[2025-04-02 10:20] LABS: INR 1.0; Partial Thromboplastin Time 28.6 Seconds (22.3-36.8); Prothrombin Time 13.6 Seconds (11.1-14.7)
--- NOTE | 2025-04-02 10:21 | ED.SOB ---
HPI - SOB/Dyspnea General Chief Complaint: Shortness of Breath/Dyspnea Stated Complaint: SOB, cough Time Seen by Provider: 04/02/25 10:16 Source: patient Mode of arrival: ambulatory Limitations: no limitations History of Present Illness HPI Narrative: Productive cough and shortness of breath started last night, history of asthma Related Data Allergies Allergy/AdvReac Type Severity Reaction Status Date / Time No Known Allergies Allergy Verified 04/02/25 09:46 Review of Systems Review of Systems: All systems reviewed & are unremarkable except as noted in HPI and below PMFSH Past Medical History Medical History History of asthma Social History Social History Substance use: never Exam Narrative: General appearance: Well-developed, well-nourished Skin: Normal color Head: Normocephalic, nontraumatic Eyes: Clear conjunctiva ENT: Oropharynx normal, ears normal, nose normal Neck: Supple, nontender Chest and respiratory: Airway patent, no respiratory distress, no accessory muscle use diffuse fine wheezing bilaterally Heart: Regular rate/rhythm Abdomen: Soft, nontender, no organomegaly, quiet bowel sounds Vascular: Normal peripheral pulses, normal capillary refill. Musculoskeletal: Normal range of motion, nontender back Neurologic: Alert and oriented ?3, ELECTROMEDICAL SERVICE ENGINEER is normal as tested, no gross motor deficit Course Vital Signs Vital signs: Vital Signs Temperature 37.1 C 04/02/25 09:44 Pulse Rate 108 H 04/02/25 09:44 Respiratory Rate 22 H 04/02/25 09:44 Blood Pressure 116/68 04/02/25 09:44 Pulse Oximetry 98 04/02/25 09:44 Oxygen Delivery Room Air 04/02/25 09:44 Temperature 36.3 C L 04/02/25 09:44 Pulse Rate 92 04/02/25 11:18 Respiratory Rate 18 04/02/25 11:18 Blood Pressure 126/83 04/02/25 11:03 Pulse Oximetry 100 04/02/25 11:03 Oxygen Delivery Room Air 04/02/25 11:19 [facility] Narrative Medical decision making narrative: Patient came with difficulty breathing and coughing history of asthma Vital signs showing heart rate 108 otherwise within normal limit Physical examination showing diffuse wheezing bilaterally Differential diagnosis asthma exacerbation, upper respiratory viral infection, less likely pneumonia Blood workup today showed insignificant abnormality Patient tested negative for COVID flu RSV Chest x-ray showed no acute abnormality In the ED patient received DuoNeb, 60 mg prednisone p.o. with remarkable improvement. Diagnosis asthma exacerbation The pt was discharged to home.the pt,s condition upon discharge was fair,education was provided to the pt in reference to the final impression,discharge study results,treatment,prognosis and need for follow up . Differential Diagnosis Differential Diagnosis: Asthma exacerbation, secondary to bacterial infection, viral infection, pneumonia Medical Records I have reviewed the following patient records and this information was taken into consideration when formulating the assessment and plan.: previous labs, previous ER visits, previous hospitalizations and previous clinic visits Lab Data 04/02/25 10:02 04/02/25 10:02 Labs: Lab Results 04/02/25 04/02/25 Range/Units 10:02 11:13 WBC 9.7 (4.5-10.0) K/mm3 RBC 4.53 (4.2-5.4) M/mm3 Hgb 12.4 (12.0-15.0) g/dL Hct 37.9 (37.0-47.0) % MCV 83.7 (80-100) fl MCH 27.4 (26-34) pg MCHC 32.7 (32-36) g/dl RDW 12.9 (11.5-14.5) % Plt Count 280 (150-375) k/mm3 MPV 9.7 (7.4-10.4) fl Immature Gran % (Auto) 0.5 (0-0.5) % Neut % (Auto) 48.8 (45.5-73.1) % Lymph % (Auto) 32.2 (18.3-44.2) % Crook % (Auto) 5.2 (2.6-8.5) % Eos % (Auto) 12.0 H (0-4.4) % Baso % (Auto) 1.3 H (0.2-1.2) % Lymph # (Auto) 3.12 (0.9-3.2) K/mm3 [place] # (Auto) 0.5 (0.1-0.6) K/mm3 Eos # (Auto) 1.2 H (0-0.3) K/mm3 Baso # (Auto) 0.1 (0.0-0.1) K/mm3 Abs Immat Gran (auto) 0.05 H (0.00-0.031) K/mm3 Absolute Neuts (auto) 4.7 (1.3-6.7) K/mm3 Absolute Nucleated RBC 0.000 (0.0-0.012) K/mm3 Nucleated RBC % 0.0 (0.0-0.2) % PT 13.6 (11.1-14.7) Seconds INR 1.0 APTT 28.6 (22.3-36.8) Seconds Sodium 135 L (137-145) mmol/L Potassium 3.7 (3.4-5.0) mmol/L Chloride 110 H (98-107) mmol/L Carbon Dioxide 20 L (22-30) mmol/L Anion Gap 5 (4-12) mmol/L BUN 13 (7-17) mg/dL Creatinine 0.92 (0.7-1.0) mg/dL Estim Creat Clear Calc 105 ml/min Estimated GFR > 60 (59 - ) Glucose 128 H (65-110) mg/dL Calcium 9.0 (8.4-10.2) mg/dL Total Bilirubin 0.6 (0.2-1.3) mg/dL AST 25 (14-36) U/L ALT 23 (6-35) U/L Alkaline Phosphatase 70 (38-126) U/L Troponin I < 0.012 (0.000-0.034) ng/mL Total Protein 7.4 (6.3-8.2) g/dL Albumin 4.2 (3.5-5.1) g/dL Lipase 74 (23-300) U/L Influenza A (RT-PCR) Negative (Negative) Influenza B (RT-PCR) Negative (Negative) RSV (RT-PCR) Negative (Negative) SARS-CoV-2 RNA (RT-PCR) Negative (Negative) ABG Data ABG results: 04/02/25 10:02 VBG pH 7.429 H* VBG pCO2 32.5 L VBG pO2 54.5 H VBG HCO3 21.0 L O2 Delivery Device Room air O2 Liters/Min Not Reportable FiO2 21 Imaging Data Radiologist's impression: ITS Impressions Chest X-Ray 04/02/25 10:37 IMPRESSION: 1. No acute cardiopulmonary findings given portable technique. ECG Data EKG #1: Attestation: I personally reviewed and interpreted this ECG as follows: ECG completion date: 04/02/25 Interpretation: Sinus tachycardia 105 beats per minute, delayed precordial R/S transition, baseline artifact, borderline EKG, compared to EKG on February 23, 2025 heart rate has increased. Critical Care Time Critical Care Time Critical Care Time: Yes Time Type: Intermittent Initial evaluation, discuss w/ involved parties, attempting to gather old records: 10 minutes Documenting medical record: 5 minutes Review of results (EKG's, labs, imaging): 5 minutes Serial repeat bedside evaluation: N/A Discussing case with multiple memebers of the care team and consultants: N/A Total Critical Care Time: 20 Discharge Plan Discharge Clinical Impression: Asthma Patient Disposition: Home Condition: Improved Instructions: Asthma (ED) Additional Instructions: Return if symptoms are worsening , call your family physician for appointment, take Tylenol as as needed for aches and pain, continue home medications. Patient Language: Romansh Prescriptions: New prednisone 20 mg tablet 40 mg PO DAILY 5 Days Qty: 10 0RF budesonide-formoterol [Breyna] 160-4.5 mcg/actuation HFA aerosol inhaler 2 puff inhalation Q12H Qty: 10.2 0RF No Action prednisone 20 mg tablet 40 mg PO DAILY 4 Days Qty: 8 0RF prednisone 20 mg tablet 20 mg PO BID Qty: 14 0RF benzonatate 200 mg capsule 200 mg PO TID PRN (Reason: cough) Qty: 15 0RF prednisone 50 mg tablet 50 mg PO DAILY Qty: 5 0RF prednisone 50 mg tablet 50 mg PO DAILY Qty: 4 0RF Rx Instructions: begin taking 02/14/25 doxycycline hyclate 100 mg capsule 100 mg PO DAILY Qty: 14 0RF amoxicillin-pot clavulanate 875-125 mg tablet 1 tablet PO Q12H Qty: 14 0RF Follow-up/Referrals: UNKNOWN,DOCTOR [Primary Care Provider] Stand Alone Forms: Work/School Release IP
[2025-04-02 10:24] LABS: Alanine Aminotransferase 23 U/L (6-35); Albumin Level 4.2 g/dL (3.5-5.1); Alkaline Phosphatase 70 U/L (38-126); Anion Gap 5 mmol/L (4-12); Aspartate Amino Transferase 25 U/L (14-36); Bilirubin,Total 0.6 mg/dL (0.2-1.3); Blood Urea Nitrogen 13 mg/dL (7-17); Calcium 9.0 mg/dL (8.4-10.2); Carbon Dioxide 20 mmol/L (22-30); Chloride 110 mmol/L (98-107); Estimated CRCL calculation 105 ml/min; Estimated Glomerular Filt Rate > 60; Glucose 128 mg/dL (65-110); Lipase 74 U/L (23-300); Potassium 3.7 mmol/L (3.4-5.0); Sodium 135 mmol/L (137-145); Total Protein 7.4 g/dL (6.3-8.2)
--- OUTSIDE RECORDS SUMMARY | 2025-04-02 10:30 | XMS_ITS | Clinical Summary ---
Author Organization [facility] Address [address] [place] [address] Care Team Providers Care Group Leader [employer]iconductor Processing Name Role Phone Rosa Maria Mckee Gennaro PRIESTN-SENIOR ARCHITECT Primary Care Provi maryana Source Comments [facility],non-owned Affiliates and Associated Physician Practices is amultiple site organization consisting of ambulatory clinics and hospital sitesin [place], [place], [place] and [place]. This disclosure is being madepursuant to the Care Everywhere program and may not contain all information available regarding this patient. Last updated 18.[facility] Allergies No known active allergies Medications * Be aware that medications may not be up to date on this document. Alwaysverify current medications with the patient. 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
[2025-04-02 10:31] LABS: Troponin I < 0.012 ng/mL (0.000-0.034)
--- OUTSIDE RECORDS SUMMARY | 2025-04-02 10:31 | XMS_ITS | Clinical Summary ---
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 EST. AVG GLUCOSE, A1C 88 mg/dL 01/10/2022 10:[address] [facility] Blood Venipuncture / Unknown 01/10/2022 8:54 PM CDT 01/10/2022 9:49 PM CDT Narrative [facility] - 01/10/2022 10:06 PM CDT HGB A1C INTERPRETATION NORMAL: <5.7% PRE-DIABETES: 5.7 - 6.4% DIABETES: 6.5% OR GREATER us Kirit Martinez MD CHEMISTRY ORDERABLES Final Re sult [facility] [employer] [facility] [id number] [address] [place] [id number] from Last 3 Months or Most Recently Relevant to Health Maintenance Insurance [place] RX [facility] [employer] Advance Directives For more information, please contact: [phone] * Default Full Code - Needs Discussion (Latest Code Status on File) Date Activated Date Inactivated Comments 01/11/2022 7:40 AM 01/11/2022 9:52 AM
--- OUTSIDE RECORDS SUMMARY | 2025-04-02 10:31 | XMS_ITS | Clinical Summary ---
Author Organization [facility] Address [address] [place] [address] Care Team Providers Care Sheet Folder Name Role Phone Abdias Dumont MD Primary Care Provider [phone] Social History Tobacco Use Types Packs/Day Years [...] age to complete this topic Care Teams Sheet Folder Relationship Specialty Start Date End Date Abdias Dumont MD [address] [place] [id number] PCP - General 05/05/13
[2025-04-02 11:03] VITALS: BP 126/83; PULSE 67; RESP 20; O2SAT 100
[2025-04-02 11:18] VITALS: PULSE 92; RESP 18
[2025-04-02 11:53] LABS: Influenza A QL RT-PCR Negative (Negative); Influenza B QL RT-PCR Negative (Negative); RSV RNA, RT-PCR Negative (Negative); SARS-CoV-2 RNA PCR Negative (Negative)
== END 2025-04-02 13:31 | disposition home or self-care (01) ==
PROVIDERS: Emergency Medicine; Emergency Provider Emergency Medicine
DX: J45.909 Unspecified asthma, uncomplicated (principal); Z20.822 Contact with and (suspected) exposure to COVID-19; R00.0 Tachycardia, unspecified
CPT/HCPCS: 36415; 71045; 80053; 82803; 83690; 84484; 85025; 85610; 85730; 87637; 93005; 94640; 99284; J7512

== ENCOUNTER 2025-04-11 15:54 | Emergency (ER) | payer OTHER, SELFPAY ==
[2025-04-11 16:13] VITALS: BP 134/72; PULSE 88; RESP 16; TEMP 36.6; O2SAT 98
--- NOTE | 2025-04-11 16:49 | ED.ASTHMA ---
HPI - Asthma General Chief Complaint: Asthma Stated Complaint: Asthma/Wheezing Time Seen by Provider: 04/11/25 16:37 Source: patient and RN notes reviewed Mode of arrival: ambulatory Limitations: no limitations History of Present Illness HPI Narrative: 44-year-old female patient with history of asthma presents today with a 2 day history of increased wheezing. She denies cold symptoms or cough. She has been using her albuterol/DuoNeb inhalers and nebulizer treatments every 2-3 hours since onset of symptoms. There providing very short-term relief. Last week she was seen in the ER after an asthma attack at work. She was worked up and discharged home with a 5 day prednisone burst. States the prednisone did help while she was taking it, but as soon as she stopped taking it she started wheezing again. She takes Dupixent and uses a steroid inhaler as well. She has not followed up with her PCP after her ER visit. Last nebulizer treatment prior to arrival was approximately 2 hours ago prior to this was another 2 hours ago. Related Data Home Medications ?Medication ?Instructions ?Recorded ?Confirmed ?Last Taken ?Type albuterol sulfate 2.5 mg/3 mL 2.5 mg inhalation PRN 04/11/25 04/11/25 Unknown History (0.083 %) solution for nebulization albuterol sulfate 90 mcg/actuation 2 puff inhalation PRN wheezing 04/11/25 04/11/25 Unknown History aerosol inhaler atenolol 50 mg-chlorthalidone 25 1 tablet PO DAILY 04/11/25 04/11/25 Unknown History mg tablet dupilumab 300 mg/2 mL subcutaneous 300 mg subcut .biweekly 04/11/25 04/11/25 Unknown History pen injector (Dupixent) ergocalciferol (vitamin D2) 1,250 1,250 mcg PO WEEKLY 04/11/25 04/11/25 Unknown History mcg (50,000 unit) capsule glyburide 5 mg tablet 5 mg PO DAILY 04/11/25 04/11/25 Unknown History ipratropium 0.5 mg-albuterol 3 mg 3 ml inhalation PRN wheezing 04/11/25 04/11/25 Unknown History (2.5 mg base)/3 mL nebulization soln losartan 100 1 tablet PO DAILY 04/11/25 04/11/25 Unknown History mg-hydrochlorothiazide 12.5 mg tablet montelukast 10 mg tablet 10 mg PO QPM 04/11/25 04/11/25 Unknown History rosuvastatin 10 mg tablet 10 mg PO DAILY 04/11/25 04/11/25 Unknown History Allergies Allergy/AdvReac Type Severity Reaction Status Date / Time No Known Allergies Allergy Verified 04/11/25 16:08 [facility] Past Medical History Medical History History of asthma Social History Social History Substance use: never Comments At time of signature, I have reviewed and agree with nursing past medical, surgical, social and family history unless otherwise noted. Please see nursing chart for further information. There is no relevant family history pertinent to the presenting complaint Exam Narrative: GENERAL: Well-appearing, well-nourished, and in no acute distress. HEAD: Normocephalic, atraumatic. EYES: EOMI. No redness or drainage. Conjunctivae normal. ENT: Mucous membranes pink and moist. Nares clear. No rhinorrhea. TMs normal bilaterally. Throat normal. Uvula midline. NECK: Normal AROM. Supple. No lymphadenopathy. CHEST: No respiratory distress. No accessory muscle use. Inspiratory and expiratory wheezing throughout.. HEART: Regular rate and rhythm. No murmur appreciated. EXTREMITIES: Normal range of motion. No edema. SKIN: Warm, dry, no rash. Capillary refill normal. Normal skin turgor. NEURO: No focal deficits. Alert and oriented x3. Gait steady. PSYCH: Normal affect. No signs of depression or anxiety. Course Course Level of Care: Express Care Visit Vital Signs Vital signs: Vital Signs Temperature 97.8 F 04/11/25 16:13 Pulse Rate 88 04/11/25 16:13 Respiratory Rate 16 04/11/25 16:13 Blood Pressure 134/72 04/11/25 16:13 Pulse Oximetry 98 04/11/25 16:13 Temperature 97.8 F 04/11/25 16:13 Pulse Rate 88 04/11/25 16:13 Respiratory Rate 16 04/11/25 16:13 Blood Pressure 134/72 04/11/25 16:13 Pulse Oximetry 98 04/11/25 16:13 Reviewed MDM MDM Narrative Medical decision making narrative: 44-year-old female patient with history of asthma presents today with a 2 day history of increased wheezing. She denies cold symptoms or cough. She has been using her albuterol/DuoNeb inhalers and nebulizer treatments every 2-3 hours since onset of symptoms. There providing very short-term relief. Last week she was seen in the ER after an asthma attack at work. She was worked up and discharged home with a 5 day prednisone burst. States the prednisone did help while she was taking it, but as soon as she stopped taking it she started wheezing again. She takes Dupixent and uses a steroid inhaler as well. Today, patient has no sick symptoms with her wheezing. Will place her back on prednisone, but will do a longer taper. Have warned patient against using her albuterol 2 frequently, potentially leading to hypokalemia. Have urged patient to call and schedule a follow-up visit with her PCP as soon as possible regarding her asthma exacerbations. Patient agrees with plan. Vital signs stable at this time. ED precautions given. Differential Diagnosis Differential Diagnosis: Asthma exacerbation, pneumonia, URI Critical Care Time Critical Care Time Critical Care Time: No Discharge Plan Discharge Clinical Impression: Asthma with acute exacerbation Qualifiers: Asthma severity: unspecified severity Asthma persistence: unspecified Qualified Code(s): J45.901 - Unspecified asthma with (acute) exacerbation Patient Disposition: Home Condition: Stable Instructions: Asthma (ED) Additional Instructions: Please start the prednisone and take as directed. Please call your PCP and schedule a follow-up visit as soon as possible. As discussed, if symptoms worsen, please go to the ER immediately for further evaluation. Patient Language: Swedish Prescriptions: New prednisone 10 mg tablet See Rx Instructions .ROUTE .COMPLEX Qty: 42 0RF Rx Instructions: 5 tabs daily x3 days,then 4 tabs daily x3 days,then 3 tabs daily x3 days,then 2 tabs daily x3 days No Action ergocalciferol (vitamin D2) 1,250 mcg (50,000 unit) capsule 1,250 mcg PO WEEKLY albuterol sulfate 2.5 mg /3 mL (0.083 %) solution for nebulization 2.5 mg inhalation PRN albuterol sulfate 90 mcg/actuation HFA aerosol inhaler 2 puff INHALATION PRN atenolol-chlorthalidone 50-25 mg tablet 1 tablet PO DAILY glyburide 5 mg tablet 5 mg PO DAILY ipratropium-albuterol 0.5 mg-3 mg(2.5 mg base)/3 mL solution for nebulization 3 ml INHALATION PRN losartan-hydrochlorothiazide 100-12.5 mg tablet 1 tablet PO DAILY montelukast 10 mg tablet 10 mg PO QPM rosuvastatin 10 mg tablet 10 mg PO DAILY Dupixent Pen 300 mg/2 mL pen injector 300 mg SUBCUT .biweekly budesonide-formoterol [Breyna] 160-4.5 mcg/actuation HFA aerosol inhaler 2 puff inhalation Q12H Qty: 10.2 0RF Follow-up/Referrals: PHYSICIAN,DIRECTOR PEDIATRIC [Primary Care Provider, Internal Medicine] Time of Disposition: 16:56
== END 2025-04-11 17:00 | disposition home or self-care (01) ==
PROVIDERS: Emergency Provider Nurse Practitioner
DX: J45.901 Unspecified asthma with (acute) exacerbation (principal); I10 Essential (primary) hypertension; E78.00 Pure hypercholesterolemia, unspecified; E11.9 Type 2 diabetes mellitus without complications; Z79.85 Long-term (current) use of injectable non-insulin antidiabetic drugs
CPT/HCPCS: 99213; G0463